=== PATIENT | female | born 1960 | race Caucasian/White ===

== ENCOUNTER → 2016-10-23 | Outpatient (CLI) | payer OTHER ==
--- NOTE | 2016-10-23 14:40 | XR ---
EXAMINATION TYPE: XR hand complete RT DATE OF EXAM: 10/23/2016 2:34 PM COMPARISON: NONE HISTORY: Pain TECHNIQUE: Three views are submitted. FINDINGS: Severe narrowing the first carpal metacarpal joint in a pattern compatible osteoarthritis. Osseous st ructures IMPRESSION: 1. No definite acute fracture or dislocation if symptoms persist, follow-up study in 7 to 10 days wo uld be suggested. 2. Severe osteoarthritis first carpal.
--- NOTE | 2016-10-23 14:41 | XR ---
EXAMINATION TYPE: XR wrist complete RT DATE OF EXAM: 10/23/2016 2:34 PM COMPARISON: NONE HISTORY: Pain TECHNIQUE: Four views submitted. FINDINGS: The osseous structures are intact. Severe arthropathy first carpal metacarpal joint and there is no a cute fracture or dislocation. IMPRESSION: 1. No definite acute fracture or dislocation if symptoms persist, follow-up study in 7 to 10 days wo uld be suggested. 2. Severe arthropathy first carpal metacarpal joint in a pattern compatible osteoarthritis
== END ==
LOC: RADXRMAIN 14:15
PROVIDERS: ATTEND Emergency Medicine
DX: M18.9 Osteoarthritis of first carpometacarpal joint, unspecified (principal); M25.531 Pain in right wrist

== ENCOUNTER → 2017-01-23 | Outpatient (CLI) | payer MEDICAID ==
[2017-01-23 08:10] LABS: Blood Urea Nitrogen 12 mg/dL (7-17); Non-African American GFR(MDRD) >60 (>60 ml/min/1.73 sqM)
--- NOTE | 2017-01-23 09:52 | CT ---
EXAMINATION TYPE: CT abdomen w con DATE OF EXAM: 01/23/2017 COMPARISON: NONE HISTORY: 56-year-old female unspecified abdominal pain TECHNIQUE: Contiguous axial scanning of the abdomen following administration of 100 ml Omnipaque 300 IV contrast. Delayed images through the kidneys and coronal/sagittal reconstructions performed. CT DLP: 899 mGycm Automated exposure control for dose reduction was used. FINDINGS: The heart is normal size without pericardial effusion. Lung bases are clear without pleural effusion. Small hiatal hernia. The liver is enlarged measuring 18.6 cm craniocaudal. There is a more focal fat along the anterior fa lciform ligament but there is diffuse diminished attenuation of the liver. Otherwise, no focal liver lesion. No biliary ductal dilatation. Portal venous system appears patent. Gallbladder, adrenal glands, spleen, and pancreas appear within normal limits. Subcentimeter hypodensities within both kidneys too small for accurate CT characterization, likely cy sts. The largest hypodense lesion is present in the left lower pole measuring 2.1 cm compatible with a cyst. Otherwise, there is symmetric uptake and excretion of contrast from both kidneys. Small fatty umbilical hernia. No dilated small bowel, free fluid, or free air. No mesenteric or retroperitoneal lymphadenopathy see n. There is mild overall stool burden without pericolonic inflammatory change seen within the visualized portions of the upper abdomen. There is suggestion of some lower descending colon diverticulosis. Bones: Degenerative disc disease and facet arthropathy within the lower lumbar spine. Chronic appeari ng endplate Schmorl's nodes and mild anterior wedging at T10 and T11. IMPRESSION: 1. BORDERLINE TO MILD HEPATOMEGALY WITH HEPATIC STEATOSIS. CORRELATE WITH LFT's, LIPID PROFILE, AND P ATIENT RISK FACTORS. 2. SMALL HIATAL HERNIA, SMALL FATTY UMBILICAL HERNIA, AND MILD DESCENDING COLONIC DIVERTICULOSIS. 3. NOTE THAT THE PELVIS IS NOT IMAGED ON THE CURRENT EXAM. 4. CHRONIC-APPEARING ENDPLATE SCHMORL'S NODES AND MILD ANTERIOR WEDGING AT T10 AND T11.
== END | disposition home or self-care (01) ==
LOC: RADCTMAIN 07:34
PROVIDERS: ATTEND Family Medicine
DX: K76.0 Fatty (change of) liver, not elsewhere classified (principal); R16.0 Hepatomegaly, not elsewhere classified; K44.9 Diaphragmatic hernia without obstruction or gangrene; K42.9 Umbilical hernia without obstruction or gangrene; K57.30 Diverticulosis of large intestine without perforation or abscess without bleeding; Z13.9 Encounter for screening, unspecified
CPT/HCPCS: 82565; 84520; 74160; Q9967

== ENCOUNTER 2017-08-08 19:49 | Observation (INO) | payer MEDICAID ==
[2017-08-08] MEDS ORDERED: SODIUM CHLORIDE 0.9% 1,000 ML IV STA (20:18)
[2017-08-08 20:38] LABS: Basophils % (A) 1 %; Eosinophils # (A) 0.3 k/uL (0-0.7); Eosinophils % (A) 6 %; HCT 40.8 % (34.0-46.0); HGB 12.9 gm/dL (11.4-16.0); Lymphocytes # (A) 2.1 k/uL (1.0-4.8); Lymphocytes % (A) 44 %; MCH 28.2 pg (25.0-35.0); MCHC 31.6 g/dL (31.0-37.0); MCV 89.2 fL (80.0-100.0); Mean Platelet Volume 7.2; Monocytes # (A) 0.3 k/uL (0-1.0); Monocytes % (A) 6 %; Neutrophils % (A) 41 %; Platelet Count 198 k/uL (150-450); RBC 4.58 m/uL (3.80-5.40); RDW 13.7 % (11.5-15.5); WBC 4.8 k/uL (3.8-10.6)
[2017-08-08 20:46] LABS: Creatine Kinase 57 U/L (30-135)
[2017-08-08 20:51] LABS: ALT 22 U/L (9-52); AST 19 U/L (14-36); Albumin 4.4 g/dL (3.5-5.0); Alkaline Phosphatase 61 U/L (38-126); Anion Gap 10 mmol/L; Blood Urea Nitrogen 19 mg/dL (7-17); Calcium 9.5 mg/dL (8.4-10.2); Carbon Dioxide 29 mmol/L (22-30); Chloride 105 mmol/L (98-107); Glucose 76 mg/dL (74-99); Potassium 3.9 mmol/L (3.5-5.1); Sodium 144 mmol/L (137-145); Total Bilirubin 0.3 mg/dL (0.2-1.3)
--- NOTE | 2017-08-08 20:51 | CT ---
EXAMINATION TYPE: CT brain wo con DATE OF EXAM: 08/08/2017 HISTORY: Right sided facial numbness today. CT DLP: 1037.10 mGycm. Automated Exposure Control for Dose Reduction was Utilized. TECHNIQUE: CT scan of the head is performed without contrast. COMPARISON: None. FINDINGS: There is no acute intracranial hemorrhage or midline shift identified. Ventricles and sul ci are normal in size. Bravo-white matter differentiation is maintained. The globes are intact and the visualized sinuses are clear. IMPRESSION: No acute intracranial hemorrhage or midline shift.
[2017-08-08 20:59] LABS: Creatine Kinase MB 0.7 ng/mL (0.0-2.4); Troponin I <0.012 ng/mL (0.000-0.034)
[2017-08-08 21:00] LABS: Partial Thromboplastin Time 22.3 sec (22.0-30.0); Prothrombin Time 10.1 sec (9.0-12.0)
--- NOTE | 2017-08-08 21:02 | XR ---
EXAMINATION TYPE: XR chest 2V DATE OF EXAM: 08/08/2017 COMPARISON: Prior chest x-ray and CTA chest March 30, 2016 HISTORY: Altered mental status. Right-sided numbness. TECHNIQUE: Frontal and lateral views of the chest are obtained. FINDINGS: There is no focal air space opacity, pleural effusion, or pneumothorax seen. The cardiac silhouette size is within normal limits. The osseous structures are intact. IMPRESSION: No acute cardiopulmonary process. No significant change from prior studies.
--- NOTE | 2017-08-08 21:19 | ED ---
Neuro HPI - General Chief Complaint: Neuro Symptoms/Deficit Stated Complaint: right side facial numbness Time Seen by Provider: 08/08/17 20:03 Source: patient Mode of arrival: ambulatory Limitations: no limitations - History of Present Illness Is the patient presenting with stroke symptoms?: No Initial Comments: 56 years old lady is transferred to [facility] from [facility] with the right side of the facial numbness starting 5 PM today, she also had episode of blurred vision 10 AM today which lasted for about 1 hour then it resolved. Now she has a mild headache no blurred vision facial numbness since there and she also has a localized infection on the top. He denies any chest pain or shortness of breath no weakness in the upper or lower extremity no other symptoms of any TIA or CVA (she took an aspirin 325 mg one in the morning and she repeated one later. - Related Data Home Medications: Home Medications Medication Instructions Recorded Confirmed Omeprazole [PriLOSEC] 20 mg PO DAILY 12/28/14 03/31/16 Previous Rx's Medication Instructions Recorded Chlorthalidone 25 mg PO DAILY #30 tab 03/31/16 Metoprolol Tartrate [Lopressor] 50 mg PO BID #60 tab 03/31/16 Allergies/Adverse Reactions: Allergies Allergy/AdvReac Type Severity Reaction Status Date / Time codeine Allergy Nausea & Verified 08/08/17 19:55 Vomiting tetanus toxoid, adsorbed Allergy Swelling Verified 08/08/17 19:55 morphine AdvReac Nausea & Verified 08/08/17 19:55 Vomiting ALL NARCOTICS AdvReac Nausea & Uncoded 08/08/17 19:55 Vomiting Review of Systems ROS Statement: Those systems with pertinent positive or pertinent negative responses have been documented in the HPI. ROS Other: All systems not noted in ROS Statement are negative. General Exam - General Exam Comments Initial Comments: General: The patient is awake and alert, in no distress, and does not appear acutely ill. Skin: Skin is warm and dry and no rashes or lesions are noted. Notice mild erythema on the right cheek and noticed a appetite oh and the middle of the upper lip Eye: Pupils are equal, round and reactive to light, extra-ocular movements are intact; there is normal conjunctiva bilaterally. Ears, nose, mouth and throat: There are moist mucous membranes and no oral lesions. Neck: The neck is supple, there is no tenderness or JVD. Cardiovascular: There is a regular rate and rhythm. No murmur, rub or gallop is appreciated. Respiratory: To auscultation bilateral, no wheezing no rhonchi no distress respiratory mahan noticed Gastrointestinal: Soft, non-distended, non-tender abdomen without masses or organomegaly noted. There is no rebound or guarding present. Bowel sounds are unremarkable. Back: There is no tenderness to palpation in the midline. There is no obvious deformity. Musculoskeletal: Normal ROM, no tenderness, There is no pedal edema. There is no calf tenderness or swelling. No cords were appreciated. Neurological: CN II-XII intact, Cranial nerves III through XII are intact. There are no obvious motor or sensory deficits. Coordination appears grossly intact. Speech is normal. Psychiatric: Cooperative, appropriate mood & affect, normal judgment. Limitations: no limitations Stroke MDM - Lab Data Result diagrams: 08/08/17 20:10 08/08/17 20:10 Lab Results 08/08/17 08/08/17 08/08/17 Range/Units 20:10 20:10 20:10 WBC 4.8 (3.8-10.6) k/uL RBC 4.58 (3.80-5.40) m/uL Hgb 12.9 (11.4-16.0) gm/dL Hct 40.8 (34.0-46.0) % MCV 89.2 (80.0-100.0) fL MCH 28.2 (25.0-35.0) pg MCHC 31.6 (31.0-37.0) g/dL RDW 13.7 (11.5-15.5) % Plt Count 198 (150-450) k/uL Neutrophils % 41 % Lymphocytes % 44 % Monocytes % 6 % Eosinophils % 6 % Basophils % 1 % Neutrophils # 2.0 (1.3-7.7) k/uL Lymphocytes # 2.1 (1.0-4.8) k/uL Monocytes # 0.3 (0-1.0) k/uL Eosinophils # 0.3 (0-0.7) k/uL Basophils # 0.0 (0-0.2) k/uL PT (9.0-12.0) sec INR (<1.2) APTT (22.0-30.0) sec Sodium 144 (137-145) mmol/L Potassium 3.9 (3.5-5.1) mmol/L Chloride 105 (98-107) mmol/L Carbon Dioxide 29 (22-30) mmol/L Anion Gap 10 mmol/L BUN 19 H (7-17) mg/dL Creatinine 0.60 (0.52-1.04) mg/dL Est GFR (MDRD) Af Amer >60 (>60 ml/min/1.73 sqM) Est GFR (MDRD) Non-Af >60 (>60 ml/min/1.73 sqM) Glucose 76 (74-99) mg/dL Calcium 9.5 (8.4-10.2) mg/dL Total Bilirubin 0.3 (0.2-1.3) mg/dL AST 19 (14-36) U/L ALT 22 (9-52) U/L Alkaline Phosphatase 61 (38-126) U/L Total Creatine Kinase 57 (30-135) U/L CK-MB (CK-2) 0.7 (0.0-2.4) ng/mL CK-MB (CK-2) Rel Index 1.2 Troponin I <0.012 (0.000-0.034) ng/mL Total Protein 7.0 (6.3-8.2) g/dL Albumin 4.4 (3.5-5.0) g/dL 08/08/17 Range/Units 20:10 WBC (3.8-10.6) k/uL RBC (3.80-5.40) m/uL Hgb (11.4-16.0) gm/dL Hct (34.0-46.0) % MCV (80.0-100.0) fL MCH (25.0-35.0) pg MCHC (31.0-37.0) g/dL RDW (11.5-15.5) % Plt Count (150-450) k/uL Neutrophils % % Lymphocytes % % Monocytes % % Eosinophils % % Basophils % % Neutrophils # (1.3-7.7) k/uL Lymphocytes # (1.0-4.8) k/uL Monocytes # (0-1.0) k/uL Eosinophils # (0-0.7) k/uL Basophils # (0-0.2) k/uL PT 10.1 (9.0-12.0) sec INR 1.0 (<1.2) APTT 22.3 (22.0-30.0) sec Sodium (137-145) mmol/L Potassium (3.5-5.1) mmol/L Chloride (98-107) mmol/L Carbon Dioxide (22-30) mmol/L Anion Gap mmol/L BUN (7-17) mg/dL Creatinine (0.52-1.04) mg/dL Est GFR (MDRD) Af Amer (>60 ml/min/1.73 sqM) Est GFR (MDRD) Non-Af (>60 ml/min/1.73 sqM) Glucose (74-99) mg/dL Calcium (8.4-10.2) mg/dL Total Bilirubin (0.2-1.3) mg/dL AST (14-36) U/L ALT (9-52) U/L Alkaline Phosphatase (38-126) U/L Total Creatine Kinase (30-135) U/L CK-MB (CK-2) (0.0-2.4) ng/mL CK-MB (CK-2) Rel Index Troponin I (0.000-0.034) ng/mL Total Protein (6.3-8.2) g/dL Albumin (3.5-5.0) g/dL Past Medical History Past Medical History: Atrial Fibrillation, Diabetes Mellitus, GERD/Reflux, Hypertension, Osteoarthritis (OA) Additional Past Medical History / Comment(s): migraines, History of Any Multi-Drug Resistant Organisms: MRSA Date of last positivie culture/infection: MDRO Source:: buttocks/ face Past Surgical History: Section Past Anesthesia/Blood Transfusion Reactions: No Reported Reaction Past Psychological History: No Psychological Hx Reported Smoking Status: Never smoker Past Alcohol Use History: Rare Past Drug Use History: None Reported Course Vital Signs 08/08/17 19:50 Temperature 97.4 F L Pulse Rate 69 Respiratory 18 Rate Blood Pressure 188/93 O2 Sat by Pulse 100 Oximetry EKG is a sinus bradycardia with sinus arrhythmia heart rate is 55 HI interval is 114 QRS duration is 80 QT/QTc is 408/390 and review of this EKG reveals T- wave inversion in lead [address] elevation or ST depression noticed - Reevaluation(s) Reevaluation #1: The patient is reassessed at down at 2100, head CT is normal CBC, CMP, troponin , EKG are unremarkable blood pressure is bit elevated she still has a numbness my recommended that we put her in the hospital for observation and have her see neurology tomorrow morning and will do MRI patient agreed with that I discussed that with the Dr. Roberto she agreed with the 08/08/17 21:19 Disposition Clinical Impression: Numbness and tingling of right side of face, Impetigo Disposition: ADMITTED IP TO THIS [facility] Condition: Good Referrals: Kaz Pavon DO [Primary Care Provider] - 1-2 days
[2017-08-08] MEDS ORDERED: ONDANSETRON 4 MG/2 ML VIAL IVP PRN (21:20)
[2017-08-08] MEDS ORDERED: NALOXONE 0.4 MG/ML 1 ML VIAL IV PRN ×2 (21:20→23:13)
[2017-08-08] MEDS ORDERED: ASPIRIN 81 MG PO STA (21:23)
[2017-08-08 22:17] VITALS: BMI 25.6
[2017-08-08] MEDS ORDERED: IBUPROFEN 400 MG TAB PO PRN (23:13)
[2017-08-08] MEDS ORDERED: CALCIUM CARBONATE 500 MG CHEWABLE PO PRN (23:13)
[2017-08-08] MEDS ORDERED: LORazepam 0.5 MG TAB PO PRN (23:13)
[2017-08-08] MEDS ORDERED: MELATONIN 3 MG TABLET PO PRN (23:13)
[2017-08-08] MEDS ORDERED: ACETAMINOPHEN TAB 325 MG TAB PO PRN (23:13)
[2017-08-08] MEDS ORDERED: traMADol 50 MG TAB PO PRN (23:13)
[2017-08-08] MEDS: LISINOPRIL 5 MG TAB PO SCH (23:35)
[2017-08-08] MEDS: ENOXAPARIN 40 MG/0.4 ML SYRINGE SQ SCH (23:41)
[2017-08-09 05:58] LABS: Glucose,Whole Blood 75 mg/dL (75-99)
[2017-08-09] MEDS: INSULIN ASPART 100 UNIT/ML 1 ML 10 ML VIAL SQ SCH ×2 (06:30→11:59)
[2017-08-09] MEDS ORDERED: PANTOPRAZOLE 40 MG TABLET PO SCH (07:30)
[2017-08-09] MEDS ORDERED: metFORMIN 500 MG TAB PO SCH (07:30)
[2017-08-09] MEDS ORDERED: CHLORTHALIDONE 25 MG TAB PO SCH (09:00)
[2017-08-09] MEDS ORDERED: METOPROLOL TARTRATE 50 MG TAB PO SCH (09:00)
[2017-08-09] MEDS ORDERED: LISINOPRIL 5 MG TAB PO SCH (09:00)
[2017-08-09] MEDS: LISINOPRIL 5 MG TAB PO SCH (10:36)
[2017-08-09] MEDS: ENOXAPARIN 40 MG/0.4 ML SYRINGE SQ SCH ×2 (10:36→10:48)
[2017-08-09 11:28] LABS: Glucose,Whole Blood 87 mg/dL (75-99)
[2017-08-09 11:55] VITALS: RESP 15; TEMP 97.3
[2017-08-09 11:58] VITALS: BP 131/70; PULSE 60
[2017-08-09 17:55] LABS: Hemoglobin A1C 5.6 % (4.0-6.0)
--- NOTE | 2017-08-17 00:30 | DS ---
DISCHARGE SUMMARY DATE OF ADMISSION: 08/08/2017 DATE LEFT AGAINST MEDICAL ADVICE: 08/09/2017 HOSPITAL COURSE: This patient was admitted at night and left in the morning against medical advice. The patient was not seen by me. For more history and physical in detail, refer to the ER note. This is a history, physical and discharge summary. MMODL / IJN: [id number] /
== END 2017-08-09 13:06 | disposition left against medical advice (07) ==
LOC: EC 19:49 → 6SEL 21:20
PROVIDERS: ADMIT Hospitalist; ATTEND Hospitalist
DX: R20.0 Anesthesia of skin (principal); R51 Headache; Z53.21 Procedure and treatment not carried out due to patient leaving prior to being seen by health care provider; K21.9 Gastro-esophageal reflux disease without esophagitis; Z79.899 Other long term (current) drug therapy; Z88.5 Allergy status to narcotic agent; Z88.7 Allergy status to serum and vaccine; Z86.14 Personal history of Methicillin resistant Staphylococcus aureus infection
CPT/HCPCS: 96360 ×2; 96361 ×2; 96372; 99285; 36415; 93005; 80053; 82550; 82553; 84484; 85025; 85610; 85730; 83036; 71046; 70450; G0378 ×2; J1650

== ENCOUNTER → 2018-03-29 | Outpatient (CLI) | payer BC ==
--- NOTE | 2018-03-29 14:57 | CT ---
EXAMINATION TYPE: CT sinus wo con DATE OF EXAM: 03/29/2018 COMPARISON: CT brain August 08, 2017 HISTORY: Chronic sinusitis per order. Headaches and double vision per patient. CT DLP: 593.1 mGycm. Automated Exposure Control for Dose Reduction was Utilized. TECHNIQUE: CT scan of the sinuses is performed without contrast, axial images are obtained, coronal r eformatted images are also reviewed. FINDINGS: The paranasal sinuses including the frontal, ethmoid, sphenoid, and maxillary sinuses bila terally are well-aerated without abnormal opacification. Tiny 3 mm mucous retention cyst or polyp inf erior medial left maxillary sinus coronal image 29 is noted The ostiomeatal complex is patent bilate rally on the coronal images. Nasal septum remains deviated to left of midline. Visualized portion of mastoid air cells show no abnormal opacification. The globes are intact bilate rally. IMPRESSION: No significant acute or chronic paranasal sinus disease and the ostiomeatal complex is pa tent bilaterally.
== END | disposition home or self-care (01) ==
LOC: RADCTMAIN 14:32
PROVIDERS: ATTEND Nurse Practitioner Family
DX: J32.9 Chronic sinusitis, unspecified (principal)
CPT/HCPCS: 70486

== ENCOUNTER 2021-05-08 08:06 | Day surgery (SDC) | payer BC ==
[2021-05-07 09:29] VITALS: BMI 32.8
--- NOTE | 2021-05-08 07:34 | P.GSHP ---
History of Present Illness H&P Date: 05/08/21 CHIEF COMPLAINT: GERD and colon screen HISTORY OF PRESENT ILLNESS: The patient is a 60-year-old female who presents with gastroesophageal reflux disease and need for colon screen. Upper and lower endoscopy were offered for further evaluation and management. PAST MEDICAL HISTORY: Please see list. PAST SURGICAL HISTORY: Please see list. MEDICATIONS: Please see list. ALLERGIES: Please see list. SOCIAL HISTORY: No illicit drug use FAMILY HISTORY: No reports of Crohn disease or ulcerative colitis. REVIEW OF ORGAN SYSTEMS: CONSTITUTIONAL: No reports of fevers or chills. GI: Denies any blood in stools or constipation. PHYSICAL EXAM: VITAL SIGNS: Stable GENERAL: Well-developed pleasant in no acute distress. HEENT: No scleral icterus. Extraocular movements grossly intact. Moist buccal mucosa. NECK: Supple without lymphadenopathy. CHEST: Unlabored respirations. Equal bilateral excursions. CARDIOVASCULAR: Regular rate and rhythm. Distal 2+ pulses. ABDOMEN: Soft, nondistended. MUSCULOSKELETAL: No clubbing, cyanosis, or edema. ASSESSMENT: 1. Gastroesophageal reflux disease 2. Colon screen. PLAN: 1. Recommend proceeding with an upper and lower endoscopy Past Medical History Past Medical History: Diabetes Mellitus, GERD/Reflux, Hyperlipidemia, Hypertension, Osteoarthritis (OA) Additional Past Medical History / Comment(s): migraines. hiatal hernia, diverticulosis History of Any Multi-Drug Resistant Organisms: MRSA Date of last positivie culture/infection: MDRO Source:: buttocks/ face Past Surgical History: Section, Heart Catheterization, Orthopedic Surgery Additional Past Surgical History / Comment(s): tendon repair lt foot Past Anesthesia/Blood Transfusion Reactions: No Reported Reaction Smoking Status: Former smoker Medications and Allergies Home Medications Medication Instructions Recorded Confirmed Type Omeprazole [PriLOSEC] 20 mg PO BID 12/28/14 05/07/21 History Aspirin 81 mg PO DAILY 08/08/17 05/07/21 History lisinopriL [Zestril] 20 mg PO DAILY 08/08/17 05/07/21 History metFORMIN HCL [Glucophage Xr] 500 mg PO BID 08/08/17 05/07/21 History Rosuvastatin [Crestor] 10 mg PO DAILY 05/07/21 05/07/21 History hydroCHLOROthiazide 25 mg PO DAILY 05/07/21 05/07/21 History Allergies Allergy/AdvReac Type Severity Reaction Status Date / Time codeine Allergy Nausea & Verified 05/07/21 09:22 Vomiting tetanus toxoid, adsorbed Allergy Swelling Verified 05/07/21 09:22 morphine AdvReac Nausea & Verified 05/07/21 09:22 Vomiting ALL NARCOTICS AdvReac Nausea & Uncoded 05/07/21 09:22 Vomiting
[~2021-05-08 08:06] MED LIST: LIDOCAINE 1% (10MG/ML) FOR IV START INTRADERMA PRN
[2021-05-08] MEDS: LACTATED RINGERS 1,000 ML IV SCH ×2 (08:45→09:16)
[2021-05-08] MEDS ORDERED: LIDOCAINE 1% (10MG/ML) FOR IV START INTRADERMA ONE (08:45)
[2021-05-08 08:47] VITALS: TEMP 98.1
[2021-05-08 08:48] LABS: Glucose,Whole Blood 121 mg/dL (75-99)
[2021-05-08] MEDS ORDERED: PROPOFOL 10 MG/ML 20 ML VIAL IV ONE (09:18)
[2021-05-08] MEDS ORDERED: LIDOCAINE 1% INJ 10MG/ML (20 ML MDV) ONE (09:18)
--- NOTE | 2021-05-08 09:29 | P.PCN ---
Date of Procedure: 05/08/21 Description of Procedure: PREOPERATIVE DIAGNOSIS: Gastroesophageal reflux disease. POSTOPERATIVE DIAGNOSIS: Gastritis. Gastroesophageal reflux disease. Diaphragmatic hiatal hernia OPERATION: Esophagogastroduodenoscopy with biopsies along antrum. SURGEON: Rosy Lopez MD ANESTHESIA: MAC. INDICATIONS: The patient is a 60-year-old female who presents with a history of reflux disease. Benefits and risks of the procedure were described. Informed consent was obtained. DESCRIPTION: The patient was brought into the endoscopy suite and laid in the left lateral decubitus position. An Olympus gastroscope was passed along the posterior oropharynx down to the distal esophagus where the squamocolumnar junction was encountered at 34 cm from the incisors. The stomach was entered and no bile reflux was found. Additional findings are listed below. Biopsies with cold forceps were obtained of the antrum. The first through third portion of the duodenum was examined and unremarkable. Retroflexion of the scope confirmed Hill grade 3 lower esophageal valve. The squamocolumnar junction demonstrated LA grade B erosive esophagitis. The stomach was desufflated. The patient tolerated the procedure well. FINDINGS: Squamocolumnar junction 34 cm from the incisors. Diaphragmatic hiatus at 37 cm. Hiatal hernia, 3 cm Hill grade 3 lower esophageal valve. LA grade B erosive esophagitis. No active duodenitis. Chronic gastritis RECOMMENDATIONS: Upper endoscopy as needed.
[2021-05-08 10:05] VITALS: BP 150/89; PULSE 74; RESP 16
--- NOTE | 2021-05-08 10:56 | P.PCN ---
Date of Procedure: 05/08/21 Description of Procedure: PREOPERATIVE DIAGNOSIS: Colonoscopy screening. POSTOPERATIVE DIAGNOSIS: Colonoscopy screening. Severe sigmoid diverticulosis with pandiverticulosis OPERATION: Colonoscopy to the cecum, ileocecal valve and appendiceal orifice. SURGEON: Rosy Lopez MD. ANESTHESIA: MAC. INDICATIONS: The patient is a 60-year-old female who presents for colonoscopy screening. Benefits and risks were described and informed consent was obtained. DESCRIPTION OF PROCEDURE: The patient had undergone Sutab prep. The patient had been brought into the operating room and laid in the left lateral decubitus position. After adequate intravenous sedation, the rectum was examined with 2% lidocaine jelly. External hemorrhoids were encountered. The rectal tone was within normal limits. No lesions were palpated in the rectal vault. An Olympus colonoscope was advanced until the cecum, ileocecal valve and appendiceal orifice were clearly viewed. The prep was good. Severe pandiverticulosis with scattered diverticulosis was encountered. No colonic polyps were found. No evidence of focal colitis was found. Retroflexion of the scope demonstrated grade 4 internal hemorrhoids without active bleeding or inflammation. The colon was desufflated. The patient had tolerated the procedure well. Withdrawal time was over 6 minutes. FINDINGS: Aronchick preparation quality scale 2 (1-5) Internal hemorrhoids, grade 4 External prolapsed hemorrhoids, grade 4 No arteriovenous malformations. No adenomatous polyps. No focal colitis. RECOMMENDATIONS: Lower endoscopy in 5 years, 2025 Plan - Discharge Summary Discharge Rx Participant: No New Discharge Prescriptions: Continue Omeprazole [PriLOSEC] 20 mg PO BID lisinopriL [Zestril] 20 mg PO DAILY metFORMIN HCL [Glucophage XR] 500 mg PO BID Aspirin 81 mg PO DAILY Rosuvastatin [Crestor] 10 mg PO DAILY hydroCHLOROthiazide 25 mg PO DAILY Discharge Medication List Omeprazole [PriLOSEC] 20 mg PO BID 12/28/14 [History] Aspirin 81 mg PO DAILY 08/08/17 [History] lisinopriL [Zestril] 20 mg PO DAILY 08/08/17 [History] metFORMIN HCL [Glucophage XR] 500 mg PO BID 08/08/17 [History] Rosuvastatin [Crestor] 10 mg PO DAILY 05/07/21 [History] hydroCHLOROthiazide 25 mg PO DAILY 05/07/21 [History] Follow up Appointment(s)/Referral(s): Rosy Lopez MD [STAFF PHYSICIAN] - 05/23/21 4:00 pm Patient Instructions/Handouts: Diverticulosis (DC), Diverticulosis Diet (GEN), Colonoscopy (DC) Activity/Diet/Wound Care/Special Instructions: Repeat colonoscopy in 5 years, 2025 Discharge Disposition: HOME SELF-CARE
== END 2021-05-08 11:00 | disposition home or self-care (01) ==
LOC: ORWHC2ENDO 08:06
PROVIDERS: ATTEND Surgery Plastic and Reconstructive Surgery
DX: K29.70 Gastritis, unspecified, without bleeding (principal); K21.9 Gastro-esophageal reflux disease without esophagitis; K44.9 Diaphragmatic hernia without obstruction or gangrene; K57.30 Diverticulosis of large intestine without perforation or abscess without bleeding; E11.9 Type 2 diabetes mellitus without complications; E78.5 Hyperlipidemia, unspecified; I10 Essential (primary) hypertension; M19.90 Unspecified osteoarthritis, unspecified site; K57.90 Diverticulosis of intestine, part unspecified, without perforation or abscess without bleeding; G43.909 Migraine, unspecified, not intractable, without status migrainosus; Z87.891 Personal history of nicotine dependence; Z79.84 Long term (current) use of oral hypoglycemic drugs; Z79.82 Long term (current) use of aspirin
CPT/HCPCS: 45378; 43239; J2001; J2704; 88305

== ENCOUNTER → 2021-05-17 | Outpatient (CLI) | payer BC ==
--- NOTE | 2021-05-17 09:50 | FL ---
EXAMINATION TYPE: FL barium swallow DATE OF EXAM: 05/17/2021 CLINICAL HISTORY: Diaphragmatic hernia per order. History of reflux with increasing pain and difficul ty swallowing for one month. History of chronic antireflux medication use. TECHNIQUE: A double contrast esophagram is performed utilizing air and barium. A total of 29 second s of fluoroscopic time was utilized during procedure and 84 images obtained COMPARISON: None FINDINGS: The esophagus shows normal motility and emptying into the stomach. No diverticulum. Small t o moderate-sized sliding-type hiatal hernia noted. No fixed hernia is present. No stricture. No signi ficant gastroesophageal reflux was seen during real time performance of this study. IMPRESSION: Small to moderate-sized sliding-type hiatal hernia.
== END | disposition home or self-care (01) ==
LOC: RADUSWWP 07:58
PROVIDERS: ATTEND Surgery Plastic and Reconstructive Surgery
DX: K44.9 Diaphragmatic hernia without obstruction or gangrene (principal); R94.31 Abnormal electrocardiogram [ECG] [EKG]
CPT/HCPCS: 74220; 93005

== ENCOUNTER → 2021-08-06 | Outpatient (CLI) | payer BC ==
[2021-08-07 13:27] LABS: Coronavirus SARS CoV-2 Not Detected (Not Detected)
== END | disposition home or self-care (01) ==
LOC: LABPAT 10:20
PROVIDERS: ATTEND Surgery Plastic and Reconstructive Surgery
DX: Z20.822 Contact with and (suspected) exposure to COVID-19 (principal)
CPT/HCPCS: U0003; C9803

== ENCOUNTER 2021-08-09 13:06 | Day surgery (SDC) | payer BC ==
[2021-08-07 15:06] VITALS: BMI 30.8
--- NOTE | 2021-08-09 12:02 | P.GSHP ---
History of Present Illness H&P Date: 08/09/21 CHIEF COMPLAINT: Paraesophageal hiatal hernia with gastroesophageal reflux disease. HISTORY OF PRESENT ILLNESS: The patient is a 60-year-old female who presents with paraesophageal hiatal hernia. She has completed upper endoscopy workup. Now she presents for surgical intervention. PAST MEDICAL HISTORY: Please see list. PAST SURGICAL HISTORY: Please see list. MEDICATIONS: Please see list. ALLERGIES: Please see list. SOCIAL HISTORY: No illicit drug use FAMILY HISTORY: No reports of Crohn disease or ulcerative colitis. REVIEW OF ORGAN SYSTEMS: CONSTITUTIONAL: No reports of fevers or chills. GI: Denies any blood in stools or constipation. PHYSICAL EXAM: VITAL SIGNS: Stable GENERAL: Well-developed pleasant and in no acute distress. HEENT: No scleral icterus. Extraocular movements grossly intact. Moist buccal mucosa. NECK: Supple without lymphadenopathy. CHEST: Unlabored respirations. Equal bilateral excursions. CARDIOVASCULAR: Regular rate and rhythm. Distal 2+ pulses. ABDOMEN: Soft, nondistended. No peritoneal signs. MUSCULOSKELETAL: No clubbing, cyanosis, or edema. SKIN: Well-perfused. Good skin turgor. ASSESSMENT: 1. Diaphragmatic paraesophageal hiatal hernia with severe gastroesophageal reflux disease. PLAN: 1. Recommend proceeding with a robotic paraesophageal hiatal hernia with possible mesh. 2. Benefits and risks of surgical intervention was discussed including possibility of open technique. 3. Inpatient hospitalization recommended of 2 nights 4. DVT prophylaxis. 5. Antibiotic prophylaxis. Past Medical History Past Medical History: Diabetes Mellitus, GERD/Reflux, Hyperlipidemia, Hyperten marci, Osteoarthritis (OA) Additional Past Medical History / Comment(s): Migraines, hiatal hernia, hx diverticulosis, hx anemia, varicose veins. History of Any Multi-Drug Resistant Organisms: MRSA Date of last positivie culture/infection: MDRO Source:: buttocks/ face Past Surgical History: Section, Heart Catheterization, Orthopedic Surgery Additional Past Surgical History / Comment(s): Tendon repair left foot. Past Anesthesia/Blood Transfusion Reactions: No Reported Reaction Past Psychological History: No Psychological Hx Reported Smoking Status: Former smoker Past Alcohol Use History: Rare Additional Past Alcohol Use History / Comment(s): Former smoker, quit in 1998. Past Drug Use History: None Reported - Past Family History Father Family Medical History: Cancer Medications and Allergies Home Medications Medication Instructions Recorded Confirmed Type Omeprazole [PriLOSEC] 20 mg PO BID 12/28/14 08/07/21 History Aspirin 81 mg PO QAM 08/08/17 08/07/21 History lisinopriL [Zestril] 20 mg PO QAM 08/08/17 08/07/21 History metFORMIN HCL [Glucophage XR] 500 mg PO BID 08/08/17 08/07/21 History Rosuvastatin [Crestor] 10 mg PO QAM 05/07/21 08/07/21 History Allergies Allergy/AdvReac Type Severity Reaction Status Date / Time codeine Allergy Nausea & Verified 08/07/21 14:55 Vomiting tetanus toxoid, adsorbed Allergy Swelling Verified 08/07/21 14:55 morphine AdvReac Nausea & Verified 08/07/21 14:55 Vomiting ALL NARCOTICS AdvReac Nausea & Uncoded 08/07/21 14:55 Vomiting
[~2021-08-09 13:06] MED LIST changes: +ACETAMINOPHEN TAB 500 MG TAB PO PRN; +CHLORHEXIDINE GLUCONATE 15 ML CUP MUCOUS MEM ONE; +DEXAMETHASONE SOD PHOSPHATE 4 MG/ML 1 ML VIAL IV ONE; +GABAPENTIN 300 MG CAP PO PRN; +HEPARIN SODIUM,PORCINE/PF 5,000 UNIT/0.5 ML SYRINGE SQ PRN; -LIDOCAINE 1% (10MG/ML) FOR IV START INTRADERMA PRN; +MELOXICAM 7.5 MG TAB PO PRN; +MIDAZOLAM 2 MG/2 ML VIAL IV PRN; +ONDANSETRON 4 MG/2 ML VIAL IVP ONE; +PANTOPRAZOLE 40 MG/10 ML VIAL IVP ONE; +SCOPOLAMINE 1.5MG/72HR PATCH TRANSDERM ONE; +SCOPOLAMINE 1.5MG/72HR PATCH TRANSDERM PRN; +fentaNYL (PF) 50 MCG/ML 2 ML AMP IV PRN
[2021-08-09 13:40] LABS: Basophils % (A) 1 %; Eosinophils # (A) 0.2 k/uL (0-0.7); Eosinophils % (A) 4 %; HCT 41.6 % (34.0-46.0); HGB 14.1 gm/dL (11.4-16.0); Lymphocytes # (A) 1.9 k/uL (1.0-4.8); Lymphocytes % (A) 44 %; MCH 29.4 pg (25.0-35.0); MCHC 33.9 g/dL (31.0-37.0); MCV 86.7 fL (80.0-100.0); Mean Platelet Volume 8.8; Monocytes # (A) 0.3 k/uL (0-1.0); Monocytes % (A) 7 %; Neutrophils # (A) 1.8 k/uL (1.3-7.7); Neutrophils % (A) 43 %; Platelet Count 219 k/uL (150-450); RDW 14.3 % (11.5-15.5); WBC 4.2 k/uL (3.8-10.6)
[2021-08-09] MEDS: LACTATED RINGERS 1,000 ML IV SCH (13:41)
[2021-08-09 13:42] LABS: Glucose,Whole Blood 100 mg/dL (75-99)
[2021-08-09 13:58] LABS: ALT 62 U/L (4-34); AST 38 U/L (14-36); African American GFR (CKD) >90 (>60 ml/min/1.73 sqM); Albumin 4.8 g/dL (3.5-5.0); Alkaline Phosphatase 87 U/L (38-126); Anion Gap 6 mmol/L; Blood Urea Nitrogen 16 mg/dL (7-17); Calcium 9.7 mg/dL (8.4-10.2); Carbon Dioxide 25 mmol/L (22-30); Chloride 107 mmol/L (98-107); Glucose 106 mg/dL (74-99); Non-African American GFR(CKD) >90 (>60 ml/min/1.73 sqM); Potassium 4.5 mmol/L (3.5-5.1); Sodium 138 mmol/L (137-145); Total Bilirubin 0.7 mg/dL (0.2-1.3); Total Protein 7.5 g/dL (6.3-8.2)
[2021-08-09] MEDS ORDERED: SUCCINYLCHOLINE CHLORIDE 100 MG/5 ML SYR IV ONE (16:30)
[2021-08-09] MEDS ORDERED: GLYCOPYRROLATE 0.2 MG/ML 2 ML VIAL ONE (16:30)
[2021-08-09] MEDS ORDERED: ROCURONIUM 10 MG/ML (5 ML VIAL) IV ONE (16:30)
[2021-08-09] MEDS ORDERED: PROPOFOL 10 MG/ML 20 ML VIAL IV ONE (16:30)
[2021-08-09] MEDS ORDERED: MIDAZOLAM 2 MG/2 ML VIAL ONE (16:30)
[2021-08-09] MEDS ORDERED: LIDOCAINE 1% INJ 10MG/ML (20 ML MDV) ONE (16:30)
[2021-08-09] MEDS ORDERED: ESMOLOL 100 MG/10 ML VIAL ONE (16:30)
[2021-08-09] MEDS ORDERED: NEOSTIGMINE 1 MG/ML 10 ML VIAL ONE (16:30)
[2021-08-09] MEDS ORDERED: fentaNYL (PF) 50 MCG/ML 2 ML AMP ONE (16:30)
[2021-08-09] MEDS ORDERED: PHENYLEPHRINE-0.9% NACL SYG 1,000 MCG/10 ML SYRINGE ONE (16:30)
[2021-08-09] MEDS ORDERED: BUPIVACAIN-EPI 0.25%-1:200,000 30 ML VIAL SQ ONE (16:49)
[2021-08-09] MEDS ORDERED: LACTATED RINGERS 1,000 ML IV ONE (17:44)
[2021-08-09] MEDS ORDERED: NALOXONE 0.4 MG/ML 1 ML VIAL IV PRN (18:09)
--- NOTE | 2021-08-09 18:16 | P.OP ---
Date of Procedure: 08/09/21 Description of Procedure: SURGEON: ROSY LOPEZ MD PREOPERATIVE DIAGNOSES: 1. Symptomatic paraesophageal diaphragmatic hiatal hernia. 2. Gastroesophageal reflux disease. 3. Hypertensive heart disease 4. Diabetes type 2, [id number] 5. Hyperlipidemia 6. Obesity due to excess calories, BMI 31.2 POSTOPERATIVE DIAGNOSES: 1. Paraesophageal midline diaphragmatic hernia, 4 cm, with incarceration. 2. Gastroesophageal reflux disease. 3. Hypertensive heart disease 4. Diabetes type 2, [id number] 5. Hyperlipidemia 6. Obesity due to excess calories, BMI 31.2 OPERATION: 1. Robotic-assisted da Renee Xi laparoscopic repair of incarcerated paraesophageal hiatal hernia, 4 x 3 cm, with Baldwin Biopatch A 8 x 8 cm. 2. Intraoperative esophagogastroduodenoscopy 3. Placement of 56-Jamaican bougie ANESTHESIA: General with local anesthetic. ESTIMATED BLOOD LOSS: 5 mL SPECIMENS REMOVED: None COMPLICATIONS: None. Condition: stable Disposition: floor FINDINGS: 1. Midline incarcerated paraesophageal hiatal hernia 4 x 3 cm 2. Intraoperative upper endoscopy confirms complete closure of hiatal hernia from Hill grade 3 to Hill grade 1 3. Intraesophageal length 3 cm INDICATIONS: The patient is a 60-year-old female who presents with gastroesophageal reflux disease poorly controlled despite medications, and a symptomatic diaphragmatic hiatal hernia. Preoperative workup including upper endoscopy demonstrated a sliding hiatal hernia. Given the severity of symptoms, the patient had elected for surgical intervention. Benefits and risks including bleeding, infection, recurrence, dysphagia, injury to the lung, need for further surgery was described at length. Informed consent was obtained. DESCRIPTION: The patient was brought into the operating room and placed in supine position. Preoperatively the patient had received heparin subcutaneously for DVT prophylaxis. After general induction, the abdomen was prepped and draped in standard sterile fashion. The patient had previously voided prior to coming to the operating room. Ioban draping was placed along the abdomen. A timeout protocol was confirmed with the surgical team, for which the patient's name, procedure to be performed including DVT prophylaxis with bilateral SCDs, and preoperative antibiotics were also confirmed. A robotic da Renee Xi system was prepped and primed. At 12 cm from the xiphoid to just below the umbilicus, proposed port sites were marked with indelible marker along the left axillary line, left mid-clavicular line with each ports were marked 10 cm from each other. A 5 mm 0 degrees laparoscopic trocar entry was performed along the left upper quadrant. The abdomen was insufflated to 15 mmHg pressure was tolerated well. Diagnostic laparoscopy demonstrated no injury to bowel, viscera, or mesentery. No injury had occurred to the small bowel or viscera. The liver was smooth consistent with two-week high-protein low-carb diet. Previous trochar sites from cholecystectomy were used. Next, one 8 mm robotic port was placed along the right upper abdomen. An 8-mm port was were placed along the right lateral lateral abdominal wall. The camera 8-mm port was maintained along the epigastrium. Another 12 mm port was placed along the left upper abdominal wall after exchanging the 5 mm port. Please note that the ports were placed at least 20 cm away from the target anatomy. Care was taken to check that each robotic arm were safely away from collision with the bed or the patient. At the epigastrium, a medium sized Aaliyah liver retractor was placed under direct visualization with the Iron Core Maker Helper placed under the right shoulder of the patient. All robotic arms were used. The patient was repositioned in reverse Trendelenburg position at 21-degrees after lowering the bed. The robot was docked above the right side of the patient. Using a grasper for arm 3, a grasper for arm 1, including vessel sealer for arm 2, the robotic system was docked and primed as described. Instruments were interchanged by the chef assistant. I had sat at the console. The gastrohepatic ligament was cleaved using a vessel sealer. Next, the phrenoesophageal ligament was mobilized and the distal esophagus was mobilized circumferentially. The left and right crura was identified. Circumferentially, the hernia sac was excised and brought into the peritoneal cavity. Moderate dissection into the mediastinum was performed to release the esophagus into the abdominal cavity. The paraesophageal hiatal hernia sac was also incised and divided from the esophagus. Care was taken to avoid any gastrotomy. The measured defect was consistent with 4 cm axial length and 3 cm in width. After dissection, the distal esophagus of 3 cm was brought into the abdominal cavity. Once the hiatus and crura was dissected, 2-0 VLOC nonabsorbable suture was placed to reapproximate the diaphragmatic hiatus posteriorly. To buttress the repair, a Baldwin Biopatch A was prepared along the back table and cut in half of a diaz-hole fashion as to reinforce the repair as an underlay. The mesh was placed along the crural repair and tagged using horizontal mattress sutures using 2-0 VLOC. I went to the head of the bed to perform intraoperative esophagogastroduodenoscopy and placement of a 56Fr bougie. The bougie was passed along the posterior oropharynx into the stomach for 2 minutes then removed confirming no gastroesophageal junction obstruction. An Olympus gastroscope was passed through posterior oropharynx. Retroflexion of the scope confirmed a Hill grade 1 lower esophageal valve. A gastric cardia diverticulum was identified. The stomach had been desufflated. No evidence of leaks were found of the esophagus or stomach. The GI tract with desufflated This concluded the endoscopic portion of the case. The robot was undocked from the patient. I re-scrubbed into the case. All instruments and pneumoperitoneum and specimens were evacuated from the abdominal cavity. Incisions were reapproximated using 4-0 Monocryl in an interrupted subcuticular fashion. Liquid glue was applied to the skin. Local anesthetic was infiltrated in all wounds for postop analgesia. At the end of the procedure, needle, sponge, and instrument count was verified correct by the rn medical surgical. The patient had tolerated the procedure well and was taken to the postanesthesia unit in stable condition. Plan - Discharge Summary Discharge Rx Participant: Yes New Discharge Prescriptions: New Simethicone 40 mg/0.6 ml Drops [Mylicon Drops] 40 mg PO PCHS PRN #30 ml PRN Reason: Gas Ondansetron Odt [Zofran Odt] 4 mg PO Q8HR PRN #9 tab PRN Reason: Nausea Simethicone 40 mg/0.6 ml Drops [Mylicon Drops] 40 mg PO PCHS PRN #30 ml PRN Reason: Gas Omeprazole [PriLOSEC] 40 mg PO DAILY #30 cap bisacodyL [Dulcolax] 5 mg PO DAILY PRN #10 tab PRN Reason: Constipation Acetaminophen Tab [Tylenol Tab] 1,000 mg PO Q6HR PRN #30 tablet PRN Reason: Pain bisacodyL [Dulcolax] 5 mg PO DAILY PRN #10 tab PRN Reason: Constipation Ondansetron Odt [Zofran Odt] 4 mg PO Q8HR PRN #9 tab PRN Reason: Nausea Continue lisinopriL [Zestril] 20 mg PO QAM metFORMIN HCL [Glucophage XR] 500 mg PO BID Aspirin 81 mg PO QAM Rosuvastatin [Crestor] 10 mg PO QAM Discontinued Omeprazole [PriLOSEC] 20 mg PO BID Discharge Medication List Aspirin 81 mg PO QAM 08/08/17 [History] lisinopriL [Zestril] 20 mg PO QAM 08/08/17 [History] metFORMIN HCL [Glucophage XR] 500 mg PO BID 08/08/17 [History] Rosuvastatin [Crestor] 10 mg PO QAM 05/07/21 [History] Acetaminophen Tab [Tylenol Tab] 1,000 mg PO Q6HR PRN #30 tablet 08/09/21 [Rx] Omeprazole [PriLOSEC] 40 mg PO DAILY #30 cap 08/09/21 [Rx] Ondansetron Odt [Zofran Odt] 4 mg PO Q8HR PRN #9 tab 08/09/21 [Rx] Ondansetron Odt [Zofran Odt] 4 mg PO Q8HR PRN #9 tab 08/09/21 [Rx] Simethicone 40 mg/0.6 ml Drops [Mylicon Drops] 40 mg PO PCHS PRN #30 ml 08/09/21 [Rx] Simethicone 40 mg/0.6 ml Drops [Mylicon Drops] 40 mg PO PCHS PRN #30 ml 08/09/21 [Rx] bisacodyL [Dulcolax] 5 mg PO DAILY PRN #10 tab 08/09/21 [Rx] bisacodyL [Dulcolax] 5 mg PO DAILY PRN #10 tab 08/09/21 [Rx] Follow up Appointment(s)/Referral(s): Rosy Lopez MD [STAFF PHYSICIAN] - 08/13/21 (Telehealth advised) Patient Instructions/Handouts: *[facility] - Managing Your Pain After Surgery Without Opioids, Hiatal Hernia (DC), Laparoscopic Hiatal Hernia Repair (DC) Activity/Diet/Wound Care/Special Instructions: Liquid diet only for 2 weeks until August 23 No lifting over 4 pounds in 4 weeks, March 25 May shower No soaking in bath tubs for 2 weeks, August 23 Please notify your surgeon if you develop nausea and vomiting including new onset of abdominal pain. Please ambulate at all times. Use Simethicone, Gas-X, Tylenol and ibuprofen or Aleve scheduled for the next 24-48 hours for best pain relief. Use ice along incisions for the today to prevent swelling. Please open, cut, crush pills larger than the size of a tic tack No carbonated beverages. No straws. Do not remove scopolamine patch for 3 days, if present Avoiding Gas Avoid drinking through a straw. Do not chew gum or tobacco. These actions cause you to swallow air, which produces excess gas in your stomach. Chew with your mouth closed. Avoid any foods that cause stomach gas and distention. These foods include corn, dried beans, peas, lentils, onions, broccoli, cauliflower and any food from the cabbage family. Avoid carbonated drinks, alcohol, citrus and tomato products. Carbonated drinks (sodas) are not allowed for the first six to eight weeks after surgery. After this time you can try them again in small amounts Clear Liquid Diet The first diet after surgery is the clear liquid diet. It includes the following liquids: Apple juice Cranberry juice Grape juice Chicken broth Beef broth Flavored gelatin (Jell-O) Decaf tea and coffee Caffeinated beverages are permitted based on tolerance Popsicles [place] ice Full Liquid Diet The full liquid diet contains anything on the clear liquid diet, plus: Milk, soy, rice and almond (no chocolate) Cream of wheat, cream of rice, grits Strained creamed soups (no tomato or broccoli) Vanilla and strawberry-flavored ice cream Sherbet Blended, custard styled or whipped yogurt (plain or vanilla only) Vanilla and butterscotch pudding (no chocolate or coconut) Nutritional drinks including Ensure, Boost, [place] Instant Breakfast (no chocolate-flavored) Note: Dairy products, such as milk, ice cream and pudding, may cause diarrhea in some people just after surgery. You may need to avoid milk products. If so, substitute them with lactose-free beverages, such as soy, rice, Lactaid or almond milks. Discharge Disposition: HOME SELF-CARE
[2021-08-09 18:37] LABS: Glucose,Whole Blood 164 mg/dL (75-99)
[2021-08-09] MEDS ORDERED: KETOROLAC 15 MG/ML 1 ML VIAL IVP ONE (19:04)
[2021-08-09] MEDS ORDERED: diphenhydrAMINE 50 MG/ML 1 ML VIAL IVP ONE (19:07)
[2021-08-09] MEDS: ONDANSETRON 4 MG/2 ML VIAL IVP SCH (19:53)
[2021-08-09] MEDS ORDERED: DEXAMETHASONE SOD PHOSPHATE 10 MG/ML 1 ML VIAL IVP ONE (20:00)
[2021-08-09] MEDS: 0.9% NACL WITH KCL 20 MEQ/L 1,000 ML IV SCH (22:06)
[2021-08-10] MEDS: KETOROLAC 30 MG/ML 1 ML VIAL IVP SCH ×2 (00:01→05:23)
[2021-08-10] MEDS: ONDANSETRON 4 MG/2 ML VIAL IVP SCH ×2 (00:01→05:23)
[2021-08-10] MEDS: ACETAMINOPHEN IV (For NPO) 1,000 MG in EMPTY BAG 1 BAG IVPB SCH ×2 (00:02→05:24)
[2021-08-10] MEDS: DEXAMETHASONE SOD PHOSPHATE 4 MG/ML 1 ML VIAL IVP SCH ×2 (00:02→05:23)
[2021-08-10] MEDS: METOCLOPRAMIDE 5 MG/ML 2 ML VIAL IVP SCH ×2 (00:02→05:22)
[2021-08-10] MEDS: SIMETHICONE 40 MG/0.6 ML DROPS 2,000 MG/30 ML BOTTLE PO SCH ×2 (00:03→05:25)
[2021-08-10 00:04] LABS: Glucose,Whole Blood 143 mg/dL (75-99)
[2021-08-10] MEDS: HYOSCYAMINE ORAL DROPS 1.875 MG/15 ML BOTTLE PO SCH ×2 (00:04→05:26)
[2021-08-10] MEDS: INSULIN ASPART (NovoLOG) 100 UNIT/ML VIAL SQ SCH ×2 (01:11→05:39)
[2021-08-10 05:37] LABS: Glucose,Whole Blood 149 mg/dL (75-99)
[2021-08-10] MEDS: 0.9% NACL WITH KCL 20 MEQ/L 1,000 ML IV SCH (06:20)
[2021-08-10] MEDS ORDERED: 0.9% NACL WITH KCL 20 MEQ/L 1,000 ML IV SCH (08:00)
[2021-08-10 08:32] VITALS: BP 116/72; PULSE 70; RESP 16; TEMP 98.2
[2021-08-10 08:57] LABS: Basophils # (A) 0 X 10*3/uL (0.00-0.10); Basophils % (A) 0 %; Eosinophils # (A) 0 X 10*3/uL (0.04-0.35); Eosinophils % (A) 0 %; HCT 39.4 % (37.2-46.3); HGB 12.4 g/dL (12.0-15.0); Immature Grans, Automated 0.2 %; Lymphocytes # (A) 0.58 X 10*3/uL (0.90-5.00); Lymphocytes % (A) 11.7 %; MCH 27.3 pg (27.0-32.0); MCHC 31.5 g/dL (32.0-37.0); MCV 86.6 fL (80.0-97.0); Mean Platelet Volume 12.3 fL (9.5-12.2); Monocytes # (A) 0.06 X 10*3/uL (0.20-1.00); Monocytes % (A) 1.2 %; NRBC Per 100 WBC 0 /100 WBCS (0.0-0.0); Neutrophils # (A) 4.31 X 10*3/uL (1.80-7.70); Neutrophils % (A) 86.9 %; Platelet Count 195 X 10*3/uL (140-440); RBC 4.55 X 10*6/uL (4.10-5.20); RDW 14.3 % (11.5-14.5); WBC 4.96 X 10*3/uL (4.50-10.00)
[2021-08-10 08:59] LABS: African American GFR (CKD) 94.2 (60.0-200.0); Anion Gap 11.1 mmol/L (10.00-18.00); Blood Urea Nitrogen 23.3 mg/dL (9.0-27.0); Calcium 8.7 mg/dL (8.7-10.3); Carbon Dioxide 20.9 mmol/L (20.0-27.5); Non-African American GFR(CKD) 81.3 (60.0-200.0); Phosphorus 4.5 mg/dL (2.4-5.1); Potassium 4.8 mmol/L (3.5-5.5)
[2021-08-10] MEDS ORDERED: ENOXAPARIN 30 MG/0.3 ML SYRINGE SQ SCH (09:00)
[2021-08-10] MEDS ORDERED: lisinopriL 20 MG TAB PO SCH (09:00)
[2021-08-10] MEDS: LACTATED RINGERS 1,000 ML IV SCH (09:17)
--- NOTE | 2021-08-10 09:37 | FL ---
EXAMINATION TYPE: FL esophagus cervic/pharynx DATE OF EXAM: 08/10/2021 HISTORY: Status post Jacques fundoplication COMPARISON: NONE TECHNIQUE: Limited esophagram directed to the tension of the gastroesophageal junction was performed. Patient was given 40 cc Isovue-370 to drink. 18 seconds fluoroscopy time, 3 intraoperative images do cument the procedure. FINDINGS: Minimal pneumoperitoneum is present consistent with postop state. Contrast material courses across th e gastroesophageal junction. There is no evident leak or obstruction to flow. Subsegmental basilar at electatic changes are noted incidentally. IMPRESSION: No evident complication status post Jacques fundoplication
[2021-08-10 10:34] LABS: Magnesium 2.2 mg/dL (1.5-2.4)
--- NOTE | 2021-08-10 11:05 | P.DS ---
Providers Expected date of discharge: 08/10/21 Attending physician: Rosy Lopez Consults: 08/09/21 11:51 Consult Physician Routine Consulting Provider: [facility] Consult Reason/Comments: [facility] Do you want consulting provider notified?: Yes Primary care physician: Stated None Hospital Course: Patient minute yesterday after laparoscopic repair hiatal hernia. Doing well today. Denies pain. Tolerating liquids. Upper GI shows no evidence of leak or obstruction. May discharge. Continue liquids after discharge. Follow-up with Dr. Mann on Thursday. Plan - Discharge Summary Discharge Rx Participant: Yes New Discharge Prescriptions: New Simethicone 40 mg/0.6 ml Drops [Mylicon Drops] 40 mg PO PCHS PRN #30 ml PRN Reason: Gas Ondansetron Odt [Zofran Odt] 4 mg PO Q8HR PRN #9 tab PRN Reason: Nausea Simethicone 40 mg/0.6 ml Drops [Mylicon Drops] 40 mg PO PCHS PRN #30 ml PRN Reason: Gas Omeprazole [PriLOSEC] 40 mg PO DAILY #30 cap bisacodyL [Dulcolax] 5 mg PO DAILY PRN #10 tab PRN Reason: Constipation Acetaminophen Tab [Tylenol Tab] 1,000 mg PO Q6HR PRN #30 tablet PRN Reason: Pain bisacodyL [Dulcolax] 5 mg PO DAILY PRN #10 tab PRN Reason: Constipation Ondansetron Odt [Zofran Odt] 4 mg PO Q8HR PRN #9 tab PRN Reason: Nausea Continue lisinopriL [Zestril] 20 mg PO QAM metFORMIN HCL [Glucophage XR] 500 mg PO BID Aspirin 81 mg PO QAM Rosuvastatin [Crestor] 10 mg PO QAM Discontinued Omeprazole [PriLOSEC] 20 mg PO BID Discharge Medication List Aspirin 81 mg PO QAM 08/08/17 [History] lisinopriL [Zestril] 20 mg PO QAM 08/08/17 [History] metFORMIN HCL [Glucophage XR] 500 mg PO BID 08/08/17 [History] Rosuvastatin [Crestor] 10 mg PO QAM 05/07/21 [History] Acetaminophen Tab [Tylenol Tab] 1,000 mg PO Q6HR PRN #30 tablet 08/09/21 [Rx] Omeprazole [PriLOSEC] 40 mg PO DAILY #30 cap 08/09/21 [Rx] Ondansetron Odt [Zofran Odt] 4 mg PO Q8HR PRN #9 tab 08/09/21 [Rx] Ondansetron Odt [Zofran Odt] 4 mg PO Q8HR PRN #9 tab 08/09/21 [Rx] Simethicone 40 mg/0.6 ml Drops [Mylicon Drops] 40 mg PO PCHS PRN #30 ml 08/09/21 [Rx] Simethicone 40 mg/0.6 ml Drops [Mylicon Drops] 40 mg PO PCHS PRN #30 ml 08/09/21 [Rx] bisacodyL [Dulcolax] 5 mg PO DAILY PRN #10 tab 08/09/21 [Rx] bisacodyL [Dulcolax] 5 mg PO DAILY PRN #10 tab 08/09/21 [Rx] Follow up Appointment(s)/Referral(s): Rosy Lopez MD [STAFF PHYSICIAN] - 08/13/21 (Telehealth advised) Patient Instructions/Handouts: *[facility] - Managing Your Pain After Surgery Without Opioids, Hiatal Hernia (DC), Laparoscopic Hiatal Hernia Repair (DC) Activity/Diet/Wound Care/Special Instructions: Liquid diet only for 2 weeks until August 23 No lifting over 4 pounds in 4 weeks, September 06October shower No soaking in bath tubs for 2 weeks, August 23 Please notify your surgeon if you develop nausea and vomiting including new onset of abdominal pain. Please ambulate at all times. Use Simethicone, Gas-X, Tylenol and ibuprofen or Aleve scheduled for the next 24-48 hours for best pain relief. Use ice along incisions for the today to prevent swelling. Please open, cut, crush pills larger than the size of a tic tack No carbonated beverages. No straws. Do not remove scopolamine patch for 3 days, if present Avoiding Gas Avoid drinking through a straw. Do not chew gum or tobacco. These actions cause you to swallow air, which produces excess gas in your stomach. Chew with your mouth closed. Avoid any foods that cause stomach gas and distention. These foods include corn, dried beans, peas, lentils, onions, broccoli, cauliflower and any food from the cabbage family. Avoid carbonated drinks, alcohol, citrus and tomato products. Carbonated drinks (sodas) are not allowed for the first six to eight weeks after surgery. After this time you can try them again in small amounts Clear Liquid Diet The first diet after surgery is the clear liquid diet. It includes the following liquids: Apple juice Cranberry juice Grape juice Chicken broth Beef broth Flavored gelatin (Jell-O) Decaf tea and coffee Caffeinated beverages are permitted based on tolerance [facility] Czech ice Full Liquid Diet The full liquid diet contains anything on the clear liquid diet, plus: Milk, soy, rice and almond (no chocolate) Cream of wheat, cream of rice, grits Strained creamed soups (no tomato or broccoli) Vanilla and strawberry-flavored ice cream Sherbet Blended, custard styled or whipped yogurt (plain or vanilla only) Vanilla and butterscotch pudding (no chocolate or coconut) Nutritional drinks including Ensure, Boost, [place] Instant Breakfast (no chocolate-flavored) Note: Dairy products, such as milk, ice cream and pudding, may cause diarrhea in some people just after surgery. You may need to avoid milk products. If so, substitute them with lactose-free beverages, such as soy, rice, Lactaid or almond milks. Discharge Disposition: HOME SELF-CARE
== END 2021-08-10 11:56 | disposition home or self-care (01) ==
LOC: OR 13:06 → 4SSUR 18:39 → OR 08-10 11:56
PROVIDERS: ATTEND Surgery Plastic and Reconstructive Surgery
DX: K44.0 Diaphragmatic hernia with obstruction, without gangrene (principal); K21.9 Gastro-esophageal reflux disease without esophagitis; I11.9 Hypertensive heart disease without heart failure; E11.9 Type 2 diabetes mellitus without complications; E78.5 Hyperlipidemia, unspecified; E66.09 Other obesity due to excess calories; M19.90 Unspecified osteoarthritis, unspecified site; G43.909 Migraine, unspecified, not intractable, without status migrainosus; K57.90 Diverticulosis of intestine, part unspecified, without perforation or abscess without bleeding; I83.90 Asymptomatic varicose veins of unspecified lower extremity; Z68.31 Body mass index [BMI] 31.0-31.9, adult; Z86.14 Personal history of Methicillin resistant Staphylococcus aureus infection; Z98.891 History of uterine scar from previous surgery; Z98.890 Other specified postprocedural states; Z87.891 Personal history of nicotine dependence; Z79.899 Other long term (current) drug therapy; Z79.82 Long term (current) use of aspirin; Z79.84 Long term (current) use of oral hypoglycemic drugs; Z88.5 Allergy status to narcotic agent; Z88.7 Allergy status to serum and vaccine; Z90.49 Acquired absence of other specified parts of digestive tract; Z80.9 Family history of malignant neoplasm, unspecified
CPT/HCPCS: 43282; S2900; 74210; 80051; 80053; 82310; 82565; 83735; 84100; 84520; 85025

== ENCOUNTER 2021-08-15 11:00 | Observation (INO) | payer BC ==
[2021-08-15 11:08] VITALS: TEMP 97.7
[2021-08-15] MEDS ORDERED: NITROGLYCERIN OINT 1 INCH/GM PACKET TOPICAL STA (11:27)
--- NOTE | 2021-08-15 11:29 | ED ---
General Adult HPI - General Chief complaint: Shortness of Breath Stated complaint: SOB Time Seen by Provider: 08/15/21 11:05 Source: patient, RN notes reviewed, old records reviewed Mode of arrival: ambulatory Limitations: no limitations - History of Present Illness Initial comments: This a 60-year-old female has past medical history significant for high blood pressure high cholesterol and diabetes. Patient states on Thursday she had a fundoplication secondary to her esophageal reflux. Patient states this morning about 9:00 she started having some chest heaviness and then shortly thereafter she started having difficulty breathing. Patient states the pain is constant and it has not relieved. Patient states her abdomen is a little sore where the incisions are but there is no new abdominal pain. Patient denies any fever chills or cough. Patient states the pain in her chest radiates to her back. Patient denies any leg swelling or calf tenderness. Patient denies abdominal pain. Other than at the incisions. Patient denies any vomiting or diarrhea. - Related Data Home Medications Medication Instructions Recorded Confirmed Aspirin 81 mg PO QAM 08/08/17 08/15/21 lisinopriL [Zestril] 20 mg PO QAM 08/08/17 08/15/21 metFORMIN HCL [Glucophage XR] 500 mg PO QAM 08/08/17 08/15/21 Rosuvastatin [Crestor] 10 mg PO QAM 05/07/21 08/15/21 metroNIDAZOLE [metroNIDAZOLE 0.75% 1 applic TOPICAL BID 08/15/21 08/15/21 Gel] Previous Rx's Medication Instructions Recorded Acetaminophen Tab [Tylenol Tab] 1,000 mg PO Q6HR PRN #30 tablet 08/09/21 Omeprazole [PriLOSEC] 40 mg PO DAILY #30 cap 08/09/21 Ondansetron Odt [Zofran Odt] 4 mg PO Q8HR PRN #9 tab 08/09/21 Simethicone 40 mg/0.6 ml Drops 40 mg PO PCHS PRN #30 ml 08/09/21 [Mylicon Drops] bisacodyL [Dulcolax] 5 mg PO DAILY PRN #10 tab MDD 3 08/09/21 tabs Allergies Allergy/AdvReac Type Severity Reaction Status Date / Time tetanus toxoid, adsorbed Allergy Swelling Verified 08/15/21 12:12 codeine AdvReac Nausea & Verified 08/15/21 12:12 Vomiting morphine AdvReac Nausea & Verified 08/15/21 12:12 Vomiting ALL NARCOTICS AdvReac Nausea & Uncoded 08/09/21 13:21 Vomiting Review of Systems ROS Statement: Those systems with pertinent positive or pertinent negative responses have been documented in the HPI. ROS Other: All systems not noted in ROS Statement are negative. Past Medical History Past Medical History: No Reported History Additional Past Medical History / Comment(s): migraines. hiatal hernia, diverticulosis History of Any Multi-Drug Resistant Organisms: MRSA Date of last positivie culture/infection: MDRO Source:: buttocks/ face Past Surgical History: Section, Heart Catheterization, Orthopedic Surgery Additional Past Surgical History / Comment(s): tendon repair lt foot, hiatal hernia repair Past Anesthesia/Blood Transfusion Reactions: No Reported Reaction Past Psychological History: No Psychological Hx Reported Smoking Status: Former smoker Past Alcohol Use History: Rare Past Drug Use History: None Reported General Exam - General Exam Comments Initial Comments: GENERAL: Patient is well-developed and well-nourished. Patient is nontoxic and well- hydrated and is in mild distress. ENT: Neck is soft and supple. No significant lymphadenopathy is noted. Oropharynx is clear. Moist mucous membranes. Neck has full range of motion without elici ting any pain. EYES: The sclera were anicteric and conjunctiva were pink and moist. Extraocular m ovements were intact and pupils were equal round and reactive to light. Eyelids were unremarkable. PULMONARY: Unlabored respirations. Good breath sounds bilaterally. No audible rales rhonchi or wheezing was noted. CARDIOVASCULAR: There is a regular rate and rhythm without any murmurs gallops or rubs. ABDOMEN: Soft and nontender with normal bowel sounds. SKIN: Skin is clear with no lesions or rashes and otherwise unremarkable. NEUROLOGIC: Patient is alert and oriented x3. Cranial nerves II through XII are grossly intact. Motor and sensory are also intact. Normal speech, volume and content. Symmetrical smile. MUSCULOSKELETAL: Normal extremities with adequate strength and full range of motion. No calf tenderness or leg swelling no leg edema LYMPHATICS: No significant lymphadenopathy is noted PSYCHIATRIC: Normal psychiatric evaluation. Limitations: no limitations Course Vital Signs 08/15/21 08/15/21 11:05 11:45 Temperature 97.7 F Pulse Rate 68 65 Respiratory 18 16 Rate Blood Pressure 150/96 117/65 O2 Sat by Pulse 99 96 Oximetry Medical Decision Making - Medical Decision Making EKG shows sinus rhythm at 71 bpm [place] interval 119 QRSs 84 QT interval 370 QTC is 42. Patient's EKG shows no ST segment elevation or depression. Chest x-ray shows no acute abnormality. CT of the chest shows no PE. I will back into the room reevaluated the patient she was feeling better. I spoke with some physicians agreed to admit the patient admitted the patient wrote admitting orders. - Lab Data Result diagrams: 08/15/21 11:45 08/15/21 11:45 Lab Results 08/15/21 08/15/21 08/15/21 Range/Units 11:45 11:45 11:45 WBC 5.1 (3.8-10.6) k/uL RBC 4.74 (3.80-5.40) m/uL Hgb 13.6 (11.4-16.0) gm/dL Hct 40.4 (34.0-46.0) % MCV 85.2 (80.0-100.0) fL MCH 28.8 (25.0-35.0) pg MCHC 33.7 (31.0-37.0) g/dL RDW 14.8 (11.5-15.5) % Plt Count 191 (150-450) k/uL MPV 8.5 Neutrophils % 61 % Lymphocytes % 28 % Monocytes % 5 % Eosinophils % 3 % Basophils % 1 % Neutrophils # 3.1 (1.3-7.7) k/uL Lymphocytes # 1.4 (1.0-4.8) k/uL Monocytes # 0.3 (0-1.0) k/uL Eosinophils # 0.1 (0-0.7) k/uL Basophils # 0.0 (0-0.2) k/uL PT 10.8 (9.0-12.0) sec INR 1.0 (<1.2) APTT 22.3 (22.0-30.0) sec D-Dimer 1.00 H (<0.60) mg/L FEU Sodium 136 L (137-145) mmol/L Potassium 4.4 (3.5-5.1) mmol/L Chloride 107 (98-107) mmol/L Carbon Dioxide 19 L (22-30) mmol/L Anion Gap 10 mmol/L BUN 17 (7-17) mg/dL Creatinine 0.57 (0.52-1.04) mg/dL Est GFR (CKD-EPI)AfAm >90 (>60 ml/min/1.73 sqM) Est GFR (CKD-EPI)NonAf >90 (>60 ml/min/1.73 sqM) Glucose 103 H (74-99) mg/dL Plasma Lactic Acid Dajuan (0.7-2.0) mmol/L Calcium 9.1 (8.4-10.2) mg/dL Magnesium 2.0 (1.6-2.3) mg/dL Total Bilirubin 0.6 (0.2-1.3) mg/dL AST 40 H (14-36) U/L ALT 55 H (4-34) U/L Alkaline Phosphatase 66 (38-126) U/L Troponin I (0.000-0.034) ng/mL Total Protein 6.6 (6.3-8.2) g/dL Albumin 4.0 (3.5-5.0) g/dL 08/15/21 08/15/21 Range/Units 11:45 11:45 WBC (3.8-10.6) k/uL RBC (3.80-5.40) m/uL Hgb (11.4-16.0) gm/dL Hct (34.0-46.0) % MCV (80.0-100.0) fL MCH (25.0-35.0) pg MCHC (31.0-37.0) g/dL RDW (11.5-15.5) % Plt Count (150-450) k/uL MPV Neutrophils % % Lymphocytes % % Monocytes % % Eosinophils % % Basophils % % Neutrophils # (1.3-7.7) k/uL Lymphocytes # (1.0-4.8) k/uL Monocytes # (0-1.0) k/uL Eosinophils # (0-0.7) k/uL Basophils # (0-0.2) k/uL PT (9.0-12.0) sec INR (<1.2) APTT (22.0-30.0) sec D-Dimer (<0.60) mg/L FEU Sodium (137-145) mmol/L Potassium (3.5-5.1) mmol/L Chloride (98-107) mmol/L Carbon Dioxide (22-30) mmol/L Anion Gap mmol/L BUN (7-17) mg/dL Creatinine (0.52-1.04) mg/dL Est GFR (CKD-EPI)AfAm (>60 ml/min/1.73 sqM) Est GFR (CKD-EPI)NonAf (>60 ml/min/1.73 sqM) Glucose (74-99) mg/dL Plasma Lactic Acid Dajuan 0.9 (0.7-2.0) mmol/L Calcium (8.4-10.2) mg/dL Magnesium (1.6-2.3) mg/dL Total Bilirubin (0.2-1.3) mg/dL AST (14-36) U/L ALT (4-34) U/L Alkaline Phosphatase (38-126) U/L Troponin I <0.012 (0.000-0.034) ng/mL Total Protein (6.3-8.2) g/dL Albumin (3.5-5.0) g/dL Disposition Clinical Impression: Chest pain Disposition: ADMITTED IP TO THIS HOSP Referrals: Kaz Pavon DO [Primary Care Provider] - 1-2 days Time of Disposition: 13:28
[2021-08-15] MEDS: ASPIRIN 81 MG PO STA ×2 (11:48→11:51)
[2021-08-15 11:55] LABS: Basophils % (A) 1 %; Eosinophils # (A) 0.1 k/uL (0-0.7); Eosinophils % (A) 3 %; HCT 40.4 % (34.0-46.0); HGB 13.6 gm/dL (11.4-16.0); Lymphocytes # (A) 1.4 k/uL (1.0-4.8); Lymphocytes % (A) 28 %; MCH 28.8 pg (25.0-35.0); MCHC 33.7 g/dL (31.0-37.0); MCV 85.2 fL (80.0-100.0); Mean Platelet Volume 8.5; Monocytes # (A) 0.3 k/uL (0-1.0); Monocytes % (A) 5 %; Neutrophils # (A) 3.1 k/uL (1.3-7.7); Neutrophils % (A) 61 %; Platelet Count 191 k/uL (150-450); RBC 4.74 m/uL (3.80-5.40); RDW 14.8 % (11.5-15.5); WBC 5.1 k/uL (3.8-10.6)
[2021-08-15 12:09] LABS: ALT 55 U/L (4-34); AST 40 U/L (14-36); African American GFR (CKD) >90 (>60 ml/min/1.73 sqM); Alkaline Phosphatase 66 U/L (38-126); Anion Gap 10 mmol/L; Blood Urea Nitrogen 17 mg/dL (7-17); Calcium 9.1 mg/dL (8.4-10.2); Carbon Dioxide 19 mmol/L (22-30); Chloride 107 mmol/L (98-107); Glucose 103 mg/dL (74-99); Non-African American GFR(CKD) >90 (>60 ml/min/1.73 sqM); Potassium 4.4 mmol/L (3.5-5.1); Sodium 136 mmol/L (137-145); Total Bilirubin 0.6 mg/dL (0.2-1.3); Total Protein 6.6 g/dL (6.3-8.2)
[2021-08-15 12:13] LABS: Partial Thromboplastin Time 22.3 sec (22.0-30.0); Prothrombin Time 10.8 sec (9.0-12.0)
--- NOTE | 2021-08-15 12:21 | XR ---
EXAMINATION TYPE: XR chest 2V DATE OF EXAM: 08/15/2021 COMPARISON: Chest x-ray 08/08/2017 HISTORY: Difficulty breathing, shortness of breath TECHNIQUE: Frontal and lateral views of the chest are obtained. FINDINGS: There is no focal air space opacity, pleural effusion, or pneumothorax seen. The cardiac silhouette size is within normal limits. Patient is rotated. There are overlying leads. The osseous structures are remarkable for anterior wedge deformity at the lower thoracic spine similar to prior e xam, there is multilevel spondylosis. Aorta is dense. IMPRESSION: No acute cardiopulmonary process.
--- NOTE | 2021-08-15 13:12 | CT ---
EXAMINATION TYPE: CT chest angio for PE DATE OF EXAM: 08/15/2021 COMPARISON: CT dated 03/30/2016. HISTORY: Elevated d-dimer, shortness of breath, hiatal hernia repair [address] DLP: 362 mGy.cm. Automated Exposure Control for Dose Reduction was Utilized. TECHNIQUE AND CONTRAST: CTA scan of the thorax is performed with IV Contrast, patient injected with 100 mL of Isovue 370, pul [facility] angiogram protocol. MIP Images are created on CT scanner and reviewed. FINDINGS: No definite filling defect within the pulmonary trunk, main pulmonary arteries, lobar, segmental and subsegmental branches to suggest pulmonary embolism. Distal subsegmental branches are suboptimally as sessed. The pulmonary trunk is nondilated. No gross cardiomegaly. Tiny air bubbles seen in the medias tinum, likely due to the recent surgery Bilateral basal linear thin pulmonary atelectasis. Unremarkable lungs otherwise. Patent central airwa ys. No pleural or pericardial effusion. Enlarged thyroid gland, please correlate with thyroid functio n tests and elective thyroid ultrasound results. No pathologically enlarged lymph nodes in the chest. Minimal fat stranding surrounding the gastroesop hageal junction. Stable anterior wedging of T10 vertebral body with degenerative changes of the lower thoracic spine IMPRESSION: No evidence of pulmonary embolism. No acute pulmonary abnormality identified. Incidental findings as described above.
[2021-08-15] MEDS ORDERED: NITROGLYCERIN SL TABS 0.4 MG TAB SUBLINGUAL PRN (13:29)
[2021-08-15 13:59] VITALS: BP 140/77; PULSE 59; RESP 20
[2021-08-15] MEDS ORDERED: ACETAMINOPHEN TAB 500 MG TAB PO PRN (14:31)
[2021-08-15] MEDS ORDERED: SIMETHICONE 40 MG/0.6 ML DROPS 2,000 MG/30 ML BOTTLE PO PRN (14:31)
--- NOTE | 2021-08-15 14:37 | P.HPIM ---
<Luis English - Last Filed: 08/15/21 14:50> History of Present Illness H&P Date: 08/15/21 PATIENT LEFT AGAINST MEDICAL ADVICE PRIOR TO BEING SEEN BY INPATIENT PROVIDER. Patient is a 60-year-old female with a past medical history of hypertension, hyperlipidemia, GERD, and type II [id number] diabetes mellitus. Patient presented to the ER with a chief complaint of chest pain reportedly described as a heavy sensation accompanied by shortness of breath. EKG completed showing normal sinus rhythm at 71 bpm with T-wave inversion in inferior leads III and aVF. Chest x-ray negative for acute cardiopulmonary process. CBC unremarkable. Coags normal findings. BMP showing slightly elevated AST of 40 and ALT of 55. Troponin negative at less than 0.012. D-dimer elevated at 1.00. CTA negative for pulmonary emboli. Pt was admitted under our services at 1:29 pm and upon arrival to ER at 14:20 to evaluate and assess patient, it was reported that PATIENT LEFT AGAINST MEDICAL ADVICE PRIOR TO BEING SEEN BY INPATIENT PROVIDER. Past Medical History Past Medical History: No Reported History Additional Past Medical History / Comment(s): migraines. hiatal hernia, diverticulosis History of Any Multi-Drug Resistant Organisms: MRSA Date of last positivie culture/infection: MDRO Source:: buttocks/ face Past Surgical History: Section, Heart Catheterization, Orthopedic Surgery Additional Past Surgical History / Comment(s): tendon repair lt foot, hiatal hernia repair Past Anesthesia/Blood Transfusion Reactions: No Reported Reaction Past Psychological History: No Psychological Hx Reported Smoking Status: Former smoker Past Alcohol Use History: Rare Past Drug Use History: None Reported Medications and Allergies Home Medications Medication Instructions Recorded Confirmed Type Aspirin 81 mg PO QAM 08/08/17 08/15/21 History lisinopriL [Zestril] 20 mg PO QAM 08/08/17 08/15/21 History metFORMIN HCL [Glucophage XR] 500 mg PO QAM 08/08/17 08/15/21 History Rosuvastatin [Crestor] 10 mg PO QAM 05/07/21 08/15/21 History Acetaminophen Tab [Tylenol Tab] 1,000 mg PO Q6HR PRN #30 tablet 08/09/21 08/15/21 Rx Omeprazole [PriLOSEC] 40 mg PO DAILY #30 cap 08/09/21 08/15/21 Rx Ondansetron Odt [Zofran Odt] 4 mg PO Q8HR PRN #9 tab 08/09/21 08/15/21 Rx Simethicone 40 mg/0.6 ml Drops 40 mg PO PCHS PRN #30 ml 08/09/21 08/15/21 Rx [Mylicon Drops] bisacodyL [Dulcolax] 5 mg PO DAILY PRN #10 tab MDD 3 08/09/21 08/15/21 Rx tabs metroNIDAZOLE [metroNIDAZOLE 0.75% 1 applic TOPICAL BID 08/15/21 08/15/21 History Gel] Allergies Allergy/AdvReac Type Severity Reaction Status Date / Time tetanus toxoid, adsorbed Allergy Swelling Verified 08/15/21 12:12 codeine AdvReac Nausea & Verified 08/15/21 12:12 Vomiting morphine AdvReac Nausea & Verified 08/15/21 12:12 Vomiting ALL NARCOTICS AdvReac Nausea & Uncoded 08/09/21 13:21 Vomiting Physical Exam Vitals: Vital Signs Temp Pulse Resp BP Pulse Ox 08/15/21 13:30 59 L 20 140/77 96 08/15/21 13:00 64 20 136/85 95 08/15/21 12:30 64 20 119/64 95 08/15/21 11:45 65 16 117/65 96 08/15/21 11:05 97.7 F 68 18 150/96 99 Intake and Output 08/14/21 08/15/21 08/15/21 22:59 06:59 14:59 Other: Weight 78.018 kg Results CBC & Chem 7: 08/15/21 11:45 08/15/21 11:45 Labs: Abnormal Lab Results - Last 24 Hours (Table) 08/15/21 08/15/21 Range/Units 11:45 11:45 D-Dimer 1.00 H (<0.60) mg/L FEU Sodium 136 L (137-145) mmol/L Carbon Dioxide 19 L (22-30) mmol/L Glucose 103 H (74-99) mg/dL AST 40 H (14-36) U/L ALT 55 H (4-34) U/L <Katja Nichole - Last Filed: 08/15/21 17:18> History of Present Illness I reviewed the documentation as provided by the VIPIN above, who is the original author of this note. I agree with the documented assessment and plan, with the following changes: None Physical Exam Osteopathic Statement: *. No significant issues noted on an osteopathic stru ctural exam other than those noted in the History and Physical/Consult. Vitals: Vital Signs Temp Pulse Resp BP Pulse Ox 08/15/21 13:30 59 L 20 140/77 96 08/15/21 13:00 64 20 136/85 95 08/15/21 12:30 64 20 119/64 95 08/15/21 11:45 65 16 117/65 96 08/15/21 11:05 97.7 F 68 18 150/96 99 Intake and Output 08/15/21 08/15/21 08/15/21 06:59 14:59 22:59 Other: Weight 78.018 kg Results CBC & Chem 7: 08/15/21 11:45 08/15/21 11:45 Labs: Abnormal Lab Results - Last 24 Hours (Table) 08/15/21 08/15/21 Range/Units 11:45 11:45 D-Dimer 1.00 H (<0.60) mg/L FEU Sodium 136 L (137-145) mmol/L Carbon Dioxide 19 L (22-30) mmol/L Glucose 103 H (74-99) mg/dL AST 40 H (14-36) U/L ALT 55 H (4-34) U/L
[2021-08-15] MEDS ORDERED: INSULIN ASPART (NovoLOG) 100 UNIT/ML VIAL SQ SCH (17:30)
[2021-08-15] MEDS ORDERED: NITROGLYCERIN OINT 1 INCH/GM PACKET TOPICAL SCH (18:00)
[2021-08-16] MEDS ORDERED: PANTOPRAZOLE 40 MG TABLET PO SCH (07:30)
[2021-08-16] MEDS ORDERED: lisinopriL 20 MG TAB PO SCH (09:00)
[2021-08-16] MEDS ORDERED: ASPIRIN 325 MG TAB PO SCH (09:00)
[2021-08-16] MEDS ORDERED: ATORVASTATIN 20 MG TAB PO SCH (09:00)
== END 2021-08-15 14:08 | disposition left against medical advice (07) ==
LOC: EC 11:00 → 6NMEDSUR 13:29
PROVIDERS: ADMIT Internal Medicine; ATTEND Internal Medicine
DX: R06.02 Shortness of breath (principal); R07.89 Other chest pain; E11.9 Type 2 diabetes mellitus without complications; E78.00 Pure hypercholesterolemia, unspecified; E78.5 Hyperlipidemia, unspecified; I10 Essential (primary) hypertension; K21.9 Gastro-esophageal reflux disease without esophagitis; R74.01 Elevation of levels of liver transaminase levels; J98.11 Atelectasis; K44.9 Diaphragmatic hernia without obstruction or gangrene; K57.90 Diverticulosis of intestine, part unspecified, without perforation or abscess without bleeding; Z79.82 Long term (current) use of aspirin; Z79.84 Long term (current) use of oral hypoglycemic drugs; Z88.7 Allergy status to serum and vaccine; Z88.5 Allergy status to narcotic agent; Z87.891 Personal history of nicotine dependence; Z86.14 Personal history of Methicillin resistant Staphylococcus aureus infection; Z53.29 Procedure and treatment not carried out because of patient's decision for other reasons; Z86.69 Personal history of other diseases of the nervous system and sense organs
CPT/HCPCS: 99285; 36415; 93005; 85379; 80053; 83605; 83735; 84484; 85025; 85610; 85730; 71046; 71275; G0378; Q9967

== ENCOUNTER → 2021-09-03 | Outpatient (CLI) | payer BC ==
[2021-09-03 11:30] LABS: Partial Thromboplastin Time 22.7 sec (22.0-30.0); Prothrombin Time 10.8 sec (9.0-12.0)
[2021-09-03 14:17] LABS: HCT 40.1 % (37.2-46.3); HGB 12.8 g/dL (12.0-15.0); MCH 27.5 pg (27.0-32.0); MCHC 31.9 g/dL (32.0-37.0); MCV 86.2 fL (80.0-97.0); Mean Platelet Volume 11.7 fL (9.5-12.2); NRBC Per 100 WBC 0 /100 WBCS (0.0-0.0); Platelet Count 194 X 10*3/uL (140-440); RBC 4.65 X 10*6/uL (4.10-5.20); RDW 14.4 % (11.5-14.5); WBC 3.59 X 10*3/uL (4.50-10.00)
[2021-09-03 14:43] LABS: % Iron Saturation 17.49 (12.00-45.00); ALT 38 U/L (8-44); AST 21 U/L (13-35); African American GFR (CKD) 117.2 (60.0-200.0); Albumin 4.4 g/dL (3.8-4.9); Albumin/Globulin Ratio 2.63 (1.60-3.17); Alkaline Phosphatase 84 U/L (41-126); BUN/Creat Ratio 27.38 Ratio (12.00-20.00); Blood Urea Nitrogen 16.1 mg/dL (9.0-27.0); Calcium 9.3 mg/dL (8.7-10.3); Carbon Dioxide 21.2 mmol/L (20.0-27.5); Chloride 106 mmol/L (96-109); Globulin 1.7 g/dL (1.6-3.3); Glucose 163 mg/dL (70-110); Iron 65 ug/dL (50-170); Magnesium 2.1 mg/dL (1.5-2.4); Non-African American GFR(CKD) 101.1 (60.0-200.0); Phosphorus 3.6 mg/dL (2.4-5.1); Potassium 4.1 mmol/L (3.5-5.5); Sodium 139 mmol/L (135-145); Total Iron Binding Capacity 371 ug/dL (228-460); Total Protein 6.1 g/dL (6.2-8.2)
[2021-09-03 17:49] LABS: Chol/HDL Ratio 2.39 Ratio; LDL Cholesterol,Calculated 46.6 mg/dL (0.0-131.0)
[2021-09-04 13:29] LABS: Zinc, Serum 78 ug/dL (60-130)
[2021-09-05 06:09] LABS: Vitamin A 37 ug/dL (38-106)
== END | disposition home or self-care (01) ==
LOC: LABWHC1 10:13
PROVIDERS: ATTEND Surgery Plastic and Reconstructive Surgery
DX: E55.9 Vitamin D deficiency, unspecified (principal); E66.01 Morbid (severe) obesity due to excess calories; E21.1 Secondary hyperparathyroidism, not elsewhere classified; E89.1 Postprocedural hypoinsulinemia; E44.0 Moderate protein-calorie malnutrition; K50.90 Crohn's disease, unspecified, without complications; K74.1 Hepatic sclerosis; D50.8 Other iron deficiency anemias; N19 Unspecified kidney failure
CPT/HCPCS: 36415; 80053; 80061; 82306; 82525; 82607; 82728; 82746; 83036; 83540; 83550; 83735; 83970; 84100; 84134; 84255; 84425; 84443; 84590; 84630; 85027; 85610; 85730

== ENCOUNTER 2023-04-20 11:55 | Observation (INO) | payer BC ==
[2023-04-20] MEDS ORDERED: ACETAMINOPHEN TAB 500 MG TAB PO STA (12:37)
[2023-04-20] MEDS ORDERED: NITROGLYCERIN OINT 1 INCH/GM PACKET TOPICAL STA (12:37)
[2023-04-20] MEDS ORDERED: ASPIRIN 81 MG PO STA (12:37)
--- NOTE | 2023-04-20 12:40 | ED ---
General Adult HPI - General Chief complaint: Chest Pain Stated complaint: Chest Pain Time Seen by Provider: 04/20/23 12:25 Source: patient, RN notes reviewed, old records reviewed Mode of arrival: ambulatory Limitations: no limitations - History of Present Illness Initial comments: This a 62-year-old female who presents to the emergency department with a past medical history significant for diabetes hypertension high cholesterol. Patient states she's been having some fluttering in her chest for the last few days but today she has a significant heavy chest radiates to the back between his shoulder. Patient states she's mild short of breath and it feels like someone sitting on her chest. Patient denies any diaphoretic episodes. Patient denies nausea. Patient states she does have palpitations at times only last for a few seconds and then makes her feel weird in her head and then sometimes she has a headache after that. Patient denies any fever chills or cough. Patient denies any abdominal pain patient is not vomiting diarrhea. Patient denies any lower back pain. - Related Data Home Medications Medication Instructions Recorded Confirmed Aspirin 81 mg PO QAM 08/08/17 08/15/21 lisinopriL [Zestril] 20 mg PO QAM 08/08/17 08/15/21 metFORMIN HCL [Glucophage XR] 500 mg PO QAM 08/08/17 08/15/21 Rosuvastatin [Crestor] 10 mg PO QAM 05/07/21 08/15/21 metroNIDAZOLE [metroNIDAZOLE 0.75% 1 applic TOPICAL BID 08/15/21 08/15/21 Gel] Previous Rx's Medication Instructions Recorded Acetaminophen Tab [Tylenol Tab] 1,000 mg PO Q6HR PRN #30 tablet 08/09/21 Omeprazole [PriLOSEC] 40 mg PO DAILY #30 cap 08/09/21 Ondansetron Odt [Zofran Odt] 4 mg PO Q8HR PRN #9 tab 08/09/21 Simethicone 40 mg/0.6 ml Drops 40 mg PO PCHS PRN #30 ml 08/09/21 [Mylicon Drops] bisacodyL [Dulcolax] 5 mg PO DAILY PRN #10 tab MDD 3 08/09/21 tabs Allergies Allergy/AdvReac Type Severity Reaction Status Date / Time tetanus toxoid, adsorbed Allergy Swelling Verified 04/20/23 12:00 codeine AdvReac Nausea & Verified 04/20/23 12:00 Vomiting morphine AdvReac Nausea & Verified 04/20/23 12:00 Vomiting ALL NARCOTICS AdvReac Nausea & Uncoded 04/20/23 12:00 Vomiting Review of Systems ROS Statement: Those systems with pertinent positive or pertinent negative responses have been documented in the HPI. ROS Other: All systems not noted in ROS Statement are negative. Past Medical History Past Medical History: No Reported History Additional Past Medical History / Comment(s): migraines. hiatal hernia, diverticulosis History of Any Multi-Drug Resistant Organisms: MRSA Date of last positivie culture/infection: MDRO Source:: buttocks/ face Past Surgical History: Section, Heart Catheterization, Orthopedic Surgery Additional Past Surgical History / Comment(s): tendon repair lt foot, hiatal hernia repair Past Anesthesia/Blood Transfusion Reactions: No Reported Reaction Past Psychological History: No Psychological Hx Reported Smoking Status: Former smoker Past Alcohol Use History: Rare Past Drug Use History: None Reported General Exam - General Exam Comments Initial Comments: GENERAL: Patient is well-developed and well-nourished. Patient is nontoxic and well- hydrated and is in mild distress. ENT: Neck is soft and supple. No significant lymphadenopathy is noted. Oropharynx is clear. Moist mucous membranes. Neck has full range of motion without eliciting any pain. EYES: The sclera were anicteric and conjunctiva were pink and moist. Extraocular movements were intact and pupils were equal round and reactive to light. Eyelids were unremarkable. PULMONARY: Unlabored respirations. Good breath sounds bilaterally. No audible rales rhonchi or wheezing was noted. CARDIOVASCULAR: There is a regular rate and rhythm without any murmurs gallops or rubs. ABDOMEN: Soft and nontender with normal bowel sounds. SKIN: Skin is clear with no lesions or rashes and otherwise unremarkable. NEUROLOGIC: Patient is alert and oriented x3. Cranial nerves II through XII are grossly intact. Motor and sensory are also intact. Normal speech, volume and content. Symmetrical smile. MUSCULOSKELETAL: Normal extremities with adequate strength and full range of motion. No lower extremity swelling or edema. No calf tenderness. LYMPHATICS: No significant lymphadenopathy is noted PSYCHIATRIC: Normal psychiatric evaluation. Limitations: no limitations Course Vital Signs 04/20/23 04/20/23 04/20/23 11:56 12:57 13:09 Temperature 96.9 F L Pulse Rate 72 68 Respiratory 18 20 20 Rate Blood Pressure 188/86 161/82 O2 Sat by Pulse 97 99 Oximetry Medical Decision Making - Medical Decision Making EKG is interpreted by myself. EKG shows a sinus rhythm at 65 bpm AR interval 241 cardiac is 88 QT interval 380 QTC is 400. Patient's EKG shows no ST segment elevation or depression. Was pt. sent in by a medical professional or institution (, GERARD, SCIENTIST, urgent care, hospital, or [facility]...) When possible be specific @ -No Did you speak to anyone other than the patient for history (EMS, parent, family, police, friend...)? What history was obtained from this source @ -No Did you review nursing and triage notes (agree or disagree)? Why? @ -I reviewed and agree with nursing and triage notes Were old charts reviewed (outside hosp., previous admission, EMS record, old EKG, old radiological studies, urgent care reports/EKG's, [facility] records)? Report findings @ -No old charts were reviewed Differential Diagnosis (chest pain, altered mental status, abdominal pain women, abdominal pain men, vaginal bleeding, weakness, fever, dyspnea, syncope, headache, dizziness, GI bleed, back pain, seizure, CVA, palpatations, mental health, musculoskeletal)? @ -Differential Chest Pain: Stable Angina, Unstable Angina, STEMI, NSTEMI Aortic Dissection, Pneumothorax, Musculoskeletal, Esophageal Spasm GERD, Cholecystitis, Pancreatitis, Zoster, this is not meant to be an all-inclusive list. EKG interpreted by me (3pts min.). @ -As above X-rays interpreted by me (1pt min.). @ -Chest x-ray shows no acute abnormality CT interpreted by me (1pt min.). @ -None done U/S interpreted by me (1pt. min.). @ -None done What testing was considered but not performed or refused? (CT, X-rays, U/S, labs)? Why? @ -None What meds were considered but not given or refused? Why? @ -None Did you discuss the management of the patient with other professionals (professionals i.e. GERARD Venegas, SCIENTIST, lab, RT, psych nurse, social media strategist, copywriting intern, teacher, registration officer, keycase assembler)? Give summary @ -I spoke with the [facility] hospitalist and they've agreed to admit the patient admitted the patient wrote admitting orders Was smoking cessation discussed for >3mins.? @ -No Was critical care preformed (if so, how long)? @ -No Were there social determinants of health that impacted care today? How? (Homelessness, low income, unemployed, alcoholism, drug addiction, transportation, low edu. Level, literacy, decrease access to med. care, halfway, rehab)? @ -No Was there de-escalation of care discussed even if they declined (Discuss DNR or withdrawal of care, Hospice)? DNR status @ -No What co-morbidities impacted this encounter? (DM, HTN, Smoking, COPD, CAD, Cancer, CVA, ARF, Chemo, Hep., AIDS, mental health diagnosis, sleep apnea, morbid obesity)? @ -None Was patient admitted / discharged? Hospital course, mention meds given and route, prescriptions, significant lab abnormalities, going to OR and other pertinent info. @ -She was given aspirin and Nitropaste as well as some Tylenol for the headache. Patient states the Nitropaste took away most of her pain. She only has a very subtle pain now in her chest. Patient's lab work showed no acute abnormalities x-ray showed no acute normalities. I spoke with the [facility] admit the patient admitted the patient wrote admitting orders I consulted cardiology Undiagnosed new problem with uncertain prognosis? @ -No Drug Therapy requiring intensive monitoring for toxicity (Heparin, Nitro, Insulin, Cardizem)? @ -No Were any procedures done? @ -No Diagnosis/symptom? @ -Chest pain Acute, or Chronic, or Acute on Chronic? @ -Acute Uncomplicated (without systemic symptoms) or Complicated (systemic symptoms)? @ -Complicated Side effects of treatment? @ -No Exacerbation, Progression, or Severe Exacerbation? @ -No Poses a threat to life or bodily function? How? (Chest pain, USA, VT, pneumonia, PE, COPD, DKA, ARF, appy, cholecystitis, CVA, Diverticulitis, Homicidal, Suicidal, threat to staff... and all critical care pts) @ -Yes this could lead to an VT and end organ dysfunction - Lab Data Result diagrams: 04/20/23 12:29 04/20/23 12:29 Lab Results 04/20/23 04/20/23 04/20/23 Range/Units 12:29 12:29 12:29 WBC 4.6 (3.8-10.6) k/uL RBC 4.59 (3.80-5.40) m/uL Hgb 13.6 (11.4-16.0) gm/dL Hct 40.9 (34.0-46.0) % MCV 89.0 (80.0-100.0) fL MCH 29.6 (25.0-35.0) pg MCHC 33.3 (31.0-37.0) g/dL RDW 13.6 (11.5-15.5) % Plt Count 212 (150-450) k/uL MPV 8.0 Neutrophils % 50 % Lymphocytes % 38 % Monocytes % 5 % Eosinophils % 4 % Basophils % 1 % Neutrophils # 2.3 (1.3-7.7) k/uL Lymphocytes # 1.7 (1.0-4.8) k/uL Monocytes # 0.3 (0-1.0) k/uL Eosinophils # 0.2 (0-0.7) k/uL Basophils # 0.0 (0-0.2) k/uL PT 10.3 (10.0-12.5) sec INR 0.9 (<1.2) APTT 22.2 (22.0-30.0) sec Sodium 139 (137-145) mmol/L Potassium 4.1 (3.5-5.1) mmol/L Chloride 105 (98-107) mmol/L Carbon Dioxide 24 (22-30) mmol/L Anion Gap 10 mmol/L BUN 15 (7-17) mg/dL Creatinine 0.56 (0.52-1.04) mg/dL Est GFR (CKD-EPI)AfAm >90 (>60 ml/min/1.73 sqM) Est GFR (CKD-EPI)NonAf >90 (>60 ml/min/1.73 sqM) Glucose 144 H (74-99) mg/dL Calcium 9.5 (8.4-10.2) mg/dL Magnesium 2.1 (1.6-2.3) mg/dL Total Bilirubin 0.4 (0.2-1.3) mg/dL AST 25 (14-36) U/L ALT 29 (4-34) U/L Alkaline Phosphatase 70 (38-126) U/L Troponin I (0.000-0.034) ng/mL Total Protein 7.0 (6.3-8.2) g/dL Albumin 4.5 (3.5-5.0) g/dL 04/20/23 Range/Units 12:29 WBC (3.8-10.6) k/uL RBC (3.80-5.40) m/uL Hgb (11.4-16.0) gm/dL Hct (34.0-46.0) % MCV (80.0-100.0) fL MCH (25.0-35.0) pg MCHC (31.0-37.0) g/dL RDW (11.5-15.5) % Plt Count (150-450) k/uL MPV Neutrophils % % Lymphocytes % % Monocytes % % Eosinophils % % Basophils % % Neutrophils # (1.3-7.7) k/uL Lymphocytes # (1.0-4.8) k/uL Monocytes # (0-1.0) k/uL Eosinophils # (0-0.7) k/uL Basophils # (0-0.2) k/uL PT (10.0-12.5) sec INR (<1.2) APTT (22.0-30.0) sec Sodium (137-145) mmol/L Potassium (3.5-5.1) mmol/L Chloride (98-107) mmol/L Carbon Dioxide (22-30) mmol/L Anion Gap mmol/L BUN (7-17) mg/dL Creatinine (0.52-1.04) mg/dL Est GFR (CKD-EPI)AfAm (>60 ml/min/1.73 sqM) Est GFR (CKD-EPI)NonAf (>60 ml/min/1.73 sqM) Glucose (74-99) mg/dL Calcium (8.4-10.2) mg/dL Magnesium (1.6-2.3) mg/dL Total Bilirubin (0.2-1.3) mg/dL AST (14-36) U/L ALT (4-34) U/L Alkaline Phosphatase (38-126) U/L Troponin I <0.012 (0.000-0.034) ng/mL Total Protein (6.3-8.2) g/dL Albumin (3.5-5.0) g/dL Disposition Clinical Impression: Chest pain Disposition: ADMITTED IP TO THIS [facility] Time of Disposition: 13:40
[2023-04-20 12:41] LABS: Basophils % (A) 1 %; Eosinophils # (A) 0.2 k/uL (0-0.7); Eosinophils % (A) 4 %; HCT 40.9 % (34.0-46.0); HGB 13.6 gm/dL (11.4-16.0); Lymphocytes # (A) 1.7 k/uL (1.0-4.8); Lymphocytes % (A) 38 %; MCH 29.6 pg (25.0-35.0); MCHC 33.3 g/dL (31.0-37.0); Monocytes # (A) 0.3 k/uL (0-1.0); Monocytes % (A) 5 %; Neutrophils # (A) 2.3 k/uL (1.3-7.7); Neutrophils % (A) 50 %; Platelet Count 212 k/uL (150-450); RBC 4.59 m/uL (3.80-5.40); RDW 13.6 % (11.5-15.5); WBC 4.6 k/uL (3.8-10.6)
--- NOTE | 2023-04-20 12:56 | XR ---
EXAMINATION TYPE: XR chest 2V DATE OF EXAM: 04/20/2023 COMPARISON: NONE TECHNIQUE: PA and lateral views submitted. HISTORY: Chest pain FINDINGS: The lungs are clear and there is no pneumothorax, pleural effusion, or focal pneumonia. Heart size normal and no overt failure. Osseous structures demonstrate hypertrophic and degenerative changes of the spine. A chronic-appearing wedge deformity midthoracic spine. IMPRESSION: 1. No acute process.
[2023-04-20 12:59] LABS: INR 0.9 (<1.2); Partial Thromboplastin Time 22.2 sec (22.0-30.0); Prothrombin Time 10.3 sec (10.0-12.5)
[2023-04-20 13:04] LABS: ALT 29 U/L (4-34); AST 25 U/L (14-36); African American GFR (CKD) >90 (>60 ml/min/1.73 sqM); Albumin 4.5 g/dL (3.5-5.0); Alkaline Phosphatase 70 U/L (38-126); Anion Gap 10 mmol/L; Blood Urea Nitrogen 15 mg/dL (7-17); Calcium 9.5 mg/dL (8.4-10.2); Carbon Dioxide 24 mmol/L (22-30); Chloride 105 mmol/L (98-107); Glucose 144 mg/dL (74-99); Magnesium 2.1 mg/dL (1.6-2.3); Non-African American GFR(CKD) >90 (>60 ml/min/1.73 sqM); Potassium 4.1 mmol/L (3.5-5.1); Sodium 139 mmol/L (137-145); Total Bilirubin 0.4 mg/dL (0.2-1.3)
[2023-04-20] MEDS ORDERED: NITROGLYCERIN SL TABS 0.4 MG TAB SUBLINGUAL PRN (13:40)
[2023-04-20] MEDS ORDERED: MORPHINE SULFATE 2 MG/ML SYRINGE IVP STA (16:34)
[2023-04-20] MEDS ORDERED: HYDROmorphone 0.5 MG/0.5 ML SYRINGE IM STA (16:39)
[2023-04-20] MEDS ORDERED: ONDANSETRON 4 MG/2 ML VIAL IVP STA (16:51)
--- NOTE | 2023-04-20 17:11 | CT ---
EXAMINATION TYPE: CT brain wo con DATE OF EXAM: 04/20/2023 COMPARISON: None INDICATION: headache DLP: 1105.3 mGycm, Automated exposure control for dose reduction was used. CONTRAST: None CT of the brain is performed utilizing 3 mm thick sections through the posterior fossa and 3 mm thick sections through the remaining calvarium. Study is performed within 24 hours of arrival to the hosp ital. No abnormal hyperdensity is present to suggest an acute intracranial hemorrhage. No mass lesion is evident. No acute infarcts are evident. There is some hypodensity within the cerebellum which is symmetrical a nd felt to more likely be artifactual. Ventricles and sulci are appropriate for the patient age. Paranasal sinuses and mastoid air cells within the [id number] are clear. IMPRESSION: 1. No acute intracranial process. Some hypodensity within the medial cerebellar lobes bilaterally i s felt to be more artifactual. Follow-up with MRI can be performed as clinically indicated.
[2023-04-20] MEDS: NITROGLYCERIN OINT 1 INCH/GM PACKET TOPICAL SCH ×2 (19:22→23:24)
[2023-04-20] MEDS: ACETAMINOPHEN TAB 325 MG TAB PO PRN (23:23)
[2023-04-20] MEDS ORDERED: DEXTROSE 50% SYRINGE 50 ML IVP PRN ×2 (23:37)
[2023-04-21] MEDS: HEPARIN SODIUM,PORCINE 5,000 UNIT/ML 1 ML VIAL SQ SCH ×3 (00:02→15:36)
--- NOTE | 2023-04-21 00:14 | P.HPIM ---
History of Present Illness H&P Date: 04/20/23 Chief Complaint: Chest pain Patient is a 62-year-old female with a past medical history of migraine headaches, hiatal hernia, history of cardiac catheterization and prior history of smoking quit in 1998 presents to ER with complaints of chest pain. Patient states that she started having chest pain mainly across the lower sternal region and between the shoulder blades. Pressure-like sensation also felt like someone sitting on the chest. She is also complaining of left shoulder pain. Persistent with mild shortness of breath. No nausea vomiting or diaphoresis. Patient states that yesterday while at work she felt like her heart fluttering for few seconds followed by fullness in the head like head morales as per patient. Denies any recent illnesses. No fever or chills. No cough or sputum production. Denies any nausea vomiting or abdominal pain or diarrhea. Patient did have prior history of cardiac catheterization. Patient states that she was given nitro in the ER which did not relieve her symptoms and gave her headache. EKG showed sinus rhythm. Chest x-ray showed no acute process. CT head showed no acute intracranial process. Some hypodensity within the medial cerebellar lobes bilaterally is felt to be more artifactual. Laboratory within normal limits. Troponin x3 negative. On admission blood pressure 188/86 pulse 72 respiration 18 pulse ox 97% on room air. Review of Systems Constitutional: Patient denies any fever or chills . no Generalized weakness. Abdomen: Patient denied any nausea or vomiting or abd. pain Cardiovascular: Patient denies any chest pain or short of breath no palpitations. Respiratory: patient denied any cough . no sputum production. No shortness of breath Neurologic: Patient denied any numbness or tingling or headache. Musculoskeletal: Patient denies any complaints of joint swelling or deformity. Skin: Negative Psychiatric: Negative Endocrine: No heat or cold intolerance. No recent weight gain. Genitourinary: No dysuria or hematuria. All other 14 point ROS negative except the above Past Medical History Past Medical History: No Reported History Additional Past Medical History / Comment(s): migraines. hiatal hernia, dive rticulosis History of Any Multi-Drug Resistant Organisms: MRSA Date of last positivie culture/infection: MDRO Source:: buttocks/ face Past Surgical History: Section, Heart Catheterization, Orthopedic Surgery Additional Past Surgical History / Comment(s): tendon repair lt foot, hiatal hernia repair Past Anesthesia/Blood Transfusion Reactions: No Reported Reaction Past Psychological History: No Psychological Hx Reported Smoking Status: Former smoker Past Alcohol Use History: Rare Additional Past Alcohol Use History / Comment(s): former smoker quit 1998 Past Drug Use History: None Reported Medications and Allergies Home Medications Medication Instructions Recorded Confirmed Type metFORMIN HCL [Glucophage XR] 500 mg PO DAILY 08/08/17 04/20/23 History Aspirin EC [Ecotrin Low Dose] 81 mg PO DAILY 04/20/23 04/20/23 History Docusate [Colace] 100 mg PO DAILY 04/20/23 04/20/23 History Lisinopril-Hctz 20-12.5 mg 1 tab PO DAILY 04/20/23 04/20/23 History [Zestoretic 20-12.5] Rosuvastatin Calcium 5 mg PO DAILY 04/20/23 04/20/23 History Allergies Allergy/AdvReac Type Severity Reaction Status Date / Time tetanus toxoid, adsorbed Allergy Swelling Verified 04/20/23 13:52 codeine AdvReac Nausea & Verified 04/20/23 13:52 Vomiting morphine AdvReac Nausea & Verified 04/20/23 13:52 Vomiting ALL NARCOTICS AdvReac Nausea & Uncoded 04/20/23 13:52 Vomiting Physical Exam Vitals: Vital Signs Temp Pulse Pulse Resp BP BP Pulse Ox 04/20/23 17:59 97.3 F L 72 16 164/89 94 L 04/20/23 17:08 72 16 114/78 98 04/20/23 15:38 80 16 138/82 98 04/20/23 15:00 86 16 180/88 98 04/20/23 13:09 68 20 161/82 99 04/20/23 12:57 20 04/20/23 11:56 96.9 F L 72 18 188/86 97 Intake and Output 04/20/23 04/20/23 04/20/23 06:59 14:59 22:59 Other: Weight 79.832 kg 79.832 kg PHYSICAL EXAMINATION: Patient is lying in the bed comfortably, no acute distress, awake alert and oriented.. HEENT: Normocephalic. Neck is supple. Pupils reactive. Nostrils clear. Oral cavity is moist. Neck reveals no JVD, carotid bruits, or thyromegaly. CHEST EXAMINATION: Trachea is central. Symmetrical expansion. Lung brower clear to auscultation and percussion. CARDIAC: Normal S1, S2 with no gallops. No murmurs ABDOMEN: Soft. Bowel sounds present. Nontender. No organomegaly. No abdominal bruits. Extremities: reveal no edema. No clubbing or cyanosis Neurologically awake, alert, oriented x3 with well-coordinated movements. No focal deficits noted Skin: No rash or skin lesions. Psychiatric: Coperative. Nonsuicidal, Musculoskeletal: No joint swelling or deformity. Normal range of motion. Results CBC & Chem 7: 04/20/23 12:29 04/20/23 12:29 Labs: Abnormal Lab Results - Last 24 Hours (Table) 04/20/23 Range/Units 12:29 Glucose 144 H (74-99) mg/dL Thrombosis Risk Factor Assmnt - DVT/VTE Prophylaxis DVT/VTE Prophylaxis: Pharmacologic Prophylaxis ordered - Choose All That Apply Each Factor Represents 1 point: Age 41-60 years Thrombosis Risk Factor Assessment Total Risk Factor Score: 1 Thrombosis Risk Factor Assessment Level: Low Risk Assessment and Plan Assessment: Possible cardiac chest pain. Rule out ACS. Uncontrolled hypertension Diabetes type 2 [id number] Migraine headaches Hiatal hernia history Prior history of cardiac catheters Prior history of smoking GI and DVT prophylaxis. With Pepcid and heparin subcu Plan: Patient will be continued on telemetry monitoring. Serial EKG and troponin x3 negative. Cardiology consult for further evaluation. Follow-up A1c and TSH levels. Continue with insulin sliding scale. Continue home medications and follow-up closely.
[2023-04-21] MEDS: ACETAMINOPHEN TAB 325 MG TAB PO PRN (05:34)
[2023-04-21] MEDS: NITROGLYCERIN OINT 1 INCH/GM PACKET TOPICAL SCH ×2 (05:35→09:05)
[2023-04-21 06:21] LABS: Glucose,Whole Blood 106 mg/dL (70-110)
[2023-04-21] MEDS: INSULIN ASPART (NovoLOG) 100 UNIT/ML VIAL SQ SCH ×2 (06:22→12:32)
[2023-04-21 07:45] VITALS: RESP 14
[2023-04-21] MEDS ORDERED: LISINOPRIL-HCTZ 20-12.5 MG 1 EACH TAB PO SCH (09:00)
[2023-04-21] MEDS ORDERED: FAMOTIDINE 20 MG TAB PO SCH (09:00)
[2023-04-21] MEDS ORDERED: DOCUSATE 100 MG CAP PO SCH (09:00)
[2023-04-21] MEDS ORDERED: ATORVASTATIN 10 MG TAB PO SCH (09:00)
[2023-04-21] MEDS ORDERED: ASPIRIN 325 MG TAB PO SCH (09:00)
[2023-04-21] MEDS ORDERED: KETOROLAC 15 MG/ML 1 ML VIAL IVP STA ×2 (09:07→15:51)
--- NOTE | 2023-04-21 10:23 | P.CRDCN ---
History of Present Illness Consult date: 04/21/23 Requesting physician: Carolyn Sheehan Reason for Consult (text): chest pain Chief complaint: chest pressure History of present illness: This is a pleasant 62-year-old female who was last seen in the office by Dr. Mcginnis in May 2021 at which time she underwent testing for preoperative clearance and a stress echocardiogram at that time showed no evidence of ischemia. She is a history of hypertension, hyperlipidemia, diabetes and ex- smoker. She presented to the emergency department with complaints of chest pressure across her chest radiating into her back that's been quite persistent. EKG on presentation showed sinus mechanism with no evidence of ischemia. Chest x-ray showed no acute process. Repeat enzymes have been unremarkable. She continues to have the pressure in the chest, does not seem to be reproducible without any aggravating or relieving factors. She has mild stable dyspnea on exertion. She denies any orthopnea, PND or edema. She said no nausea or vomiting. She's had occasional palpitations him a brief period she was having some lightheadedness and a computed tomography scan of the brain showed no acute intracranial process, some hypodensity within the medial cerebellar lobes bilaterally felt to be more artifactual, follow-up with MRI can be performed as clinically indicated. Past Medical History Past Medical History: No Reported History Additional Past Medical History / Comment(s): migraines. hiatal hernia, diverticulosis History of Any Multi-Drug Resistant Organisms: MRSA Date of last positivie culture/infection: MDRO Source:: buttocks/ face Past Surgical History: Section, Heart Catheterization, Orthopedic Surgery Additional Past Surgical History / Comment(s): tendon repair lt foot, hiatal hernia repair Past Anesthesia/Blood Transfusion Reactions: No Reported Reaction Past Psychological History: No Psychological Hx Reported Smoking Status: Former smoker Past Alcohol Use History: Rare Additional Past Alcohol Use History / Comment(s): former smoker quit 1998 Past Drug Use History: None Reported Medications and Allergies Home Medications Medication Instructions Recorded Confirmed Type metFORMIN HCL [Glucophage XR] 500 mg PO DAILY 08/08/17 04/20/23 History Aspirin EC [Ecotrin Low Dose] 81 mg PO DAILY 04/20/23 04/20/23 History Docusate [Colace] 100 mg PO DAILY 04/20/23 04/20/23 History Lisinopril-Hctz 20-12.5 mg 1 tab PO DAILY 04/20/23 04/20/23 History [Zestoretic 20-12.5] Rosuvastatin Calcium 5 mg PO DAILY 04/20/23 04/20/23 History Allergies Allergy/AdvReac Type Severity Reaction Status Date / Time tetanus toxoid, adsorbed Allergy Swelling Verified 04/20/23 13:52 codeine AdvReac Nausea & Verified 04/20/23 13:52 Vomiting morphine AdvReac Nausea & Verified 04/20/23 13:52 Vomiting ALL NARCOTICS AdvReac Nausea & Uncoded 04/20/23 13:52 Vomiting Physical Exam Vitals: Vital Signs Temp Pulse Pulse Resp BP BP Pulse Ox 04/21/23 07:00 97.7 F 63 14 159/83 100 04/21/23 00:04 97.8 F 66 16 162/84 95 04/20/23 20:00 85 04/20/23 19:45 97.4 F L 85 15 122/73 97 04/20/23 17:59 97.3 F L 72 16 164/89 94 L 04/20/23 17:08 72 16 114/78 98 04/20/23 15:38 80 16 138/82 98 04/20/23 15:00 86 16 180/88 98 04/20/23 13:09 68 20 161/82 99 04/20/23 12:57 20 04/20/23 11:56 96.9 F L 72 18 188/86 97 Intake and Output 04/20/23 04/21/23 04/21/23 22:59 06:59 14:59 Other: # Voids 1 2 Weight 79.832 kg PHYSICAL EXAMINATION: This is a 62-year-old female in no apparent distress at the time of my examination. VITAL SIGNS: Reviewed HEENT: Head is atraumatic, normocephalic. Pupils are equal, round. Sclerae anicteric. Conjunctivae are clear. Mucous membranes of the mouth are moist. Neck is supple. There is no elevated jugular venous pressure. No carotid bruit is heard. CHEST EXAMINATION: Clear to auscultation bilaterally. No wheezes rales or rhonchi. Respirations even and nonlabored. HEART EXAMINATION: Heart regular, positive S1 and S2. No S3. No S4. No clicks, rubs or murmurs. ABDOMEN: Soft, nontender. Bowel sounds are heard. No organomegaly noted. EXTREMITIES: 2+ peripheral pulses with no evidence of peripheral edema and no calf tenderness noted. NEUROLOGIC EXAMINATION: Patient is awake, alert and oriented x3. Results 04/20/23 12:29 04/20/23 12:29 Cardiac Enzymes 04/20/23 04/20/23 04/20/23 Range/Units 12:29 12:29 15:35 AST 25 (14-36) U/L Troponin I <0.012 <0.012 (0.000-0.034) ng/mL 04/20/23 Range/Units 17:59 AST (14-36) U/L Troponin I <0.012 (0.000-0.034) ng/mL Coagulation 04/20/23 Range/Units 12:29 PT 10.3 (10.0-12.5) sec APTT 22.2 (22.0-30.0) sec CBC 04/20/23 Range/Units 12:29 WBC 4.6 (3.8-10.6) k/uL RBC 4.59 (3.80-5.40) m/uL Hgb 13.6 (11.4-16.0) gm/dL Hct 40.9 (34.0-46.0) % Plt Count 212 (150-450) k/uL Comprehensive Metabolic Panel 04/20/23 Range/Units 12:29 Sodium 139 (137-145) mmol/L Potassium 4.1 (3.5-5.1) mmol/L Chloride 105 (98-107) mmol/L Carbon Dioxide 24 (22-30) mmol/L BUN 15 (7-17) mg/dL Creatinine 0.56 (0.52-1.04) mg/dL Glucose 144 H (74-99) mg/dL Calcium 9.5 (8.4-10.2) mg/dL AST 25 (14-36) U/L ALT 29 (4-34) U/L Alkaline Phosphatase 70 (38-126) U/L Total Protein 7.0 (6.3-8.2) g/dL Albumin 4.5 (3.5-5.0) g/dL Current Medications Generic Name Dose Route Start Last Admin Trade Name Freq PRN Reason Stop Dose Admin Acetaminophen 650 mg 04/20/23 23:13 04/21/23 05:34 Acetaminophen Tab 325 Mg Tab PO 650 mg Q6HR PRN Administration Fever and/ or Pain Aspirin 325 mg 04/21/23 09:00 04/21/23 08:29 Aspirin 325 Mg Tab PO 325 mg DAILY SARAH Administration Atorvastatin Calcium 10 mg 04/21/23 09:00 04/21/23 08:29 Atorvastatin 10 Mg Tab PO 10 mg DAILY SARAH Administration Dextrose/Water 25 ml 04/20/23 23:37 Dextrose 50% Syringe 50 Ml IVP PER PROTOCOL PRN Hypoglycemia Protocol Dextrose/Water 50 ml 04/20/23 23:37 Dextrose 50% Syringe 50 Ml IVP PER PROTOCOL PRN Hypoglycemia Protocol Docusate Sodium 100 mg 04/21/23 09:00 04/21/23 08:30 Docusate 100 Mg Cap PO 100 mg DAILY SARAH Administration Famotidine 20 mg 04/21/23 09:00 04/21/23 08:29 Famotidine 20 Mg Tab PO 20 mg BID SARAH Administration Lisinopril/HCTZ 1 each 04/21/23 09:00 04/21/23 08:30 Lisinopril-Hctz 20-12.5 Mg 1 Each Tab PO 1 each DAILY SAARH Administration Heparin Sodium (Porcine) 5,000 unit 04/21/23 00:00 04/21/23 07:54 Heparin Sodium,Porcine 5,000 Unit/Ml 1 Ml Vial SQ Not Given Q8HR [facility] Insulin Aspart 0 unit 04/21/23 07:30 04/21/23 06:22 Insulin Aspart (Novolog) 100 Unit/Ml Vial SQ Not Given ACHS [facility] Protocol Nitroglycerin 0.4 mg 04/20/23 13:40 Nitroglycerin Sl Tabs 0.4 Mg Tab SUBLINGUAL Q5M PRN Chest Pain Nitroglycerin 1 inch 04/20/23 18:00 04/21/23 09:05 Nitroglycerin Oint 1 Inch/Gm Packet TOPICAL Not Given Q6HR SARAH Intake and Output 04/20/23 04/21/23 04/21/23 22:59 06:59 14:59 Other: # Voids 1 2 Weight 79.832 kg 04/20/23 12:29 04/20/23 12:29 EKG Interpretations (text) Normal sinus rhythm Assessment and Plan Assessment: 1 symptoms of chest pressure, acute coronary event has been ruled out, EKG shows no evidence of ischemia and cardiac enzymes have been unremarkable 2 hypertension 3 hyperlipidemia 4 diabetes mellitus type 2 Plan: From cardiology perspective we'll obtain a 2-D echo with Doppler study to assess cardiac structure and function. We will obtain an exercise MPI to maximum capacity. Further recommendations will be made depending on test results. 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 Patient was seen and examined.
[2023-04-21] MEDS ORDERED: REGADENOSON 0.4 MG/5 ML SYRINGE IV ONE (11:10)
[2023-04-21 11:41] LABS: Blood Urea Nitrogen 18.3 mg/dL (9.0-27.0); Calcium 9.4 mg/dL (8.7-10.3); Carbon Dioxide 25.8 mmol/L (21.6-31.8); Chloride 105 mmol/L (96-109); Chol/HDL Ratio 2.89 Ratio; Glucose 101 mg/dL (70-110); LDL Cholesterol,Calculated 96.9 mg/dL (0.0-131.0); Sodium 142 mmol/L (135-145)
[2023-04-21 12:15] LABS: Glucose,Whole Blood 93 mg/dL (70-110)
--- NOTE | 2023-04-21 12:34 | CA ---
Lexiscan Nuclear Stress Test Report Name: Shelby Salgado Exam Date: 04/21/2023 10:49 Exam Location: [facility] Stress Ht (in): 63 Wt (lb): 176 BSA: 1.83 Ordering Phys: Marija Antoine NPC Referring Phys: NIXON, Technologist: Nate Choe Age: 62 Gender: F : 1960 Procedure CPT: Indications: Reflex order-Stress test ICD-10 Codes: Patient History: CP, LAKE, PALP, HTN, DM, CHOL, CATH Medications: SEE CHART Meds past 24 hrs: Pretest Chest Pain: STRESS TEST Lexiscan Protocol Exercise Duration (min:sec): 02:[address] Depressions (mm): Angina Score: Esparza Score: Resting HR (bpm): 65 Peak HR (bpm): 99 Resting BP (mmHg): 180 / 100 Peak BP (mmHg): 196 / 99 MPHR: 160 Target HR: 136 % MPHR: 62 METS: 1.0 Total Dose: Peak Dose: Atropine: Double Product: 24882 BP Response: Stress Termination: END OF DOSAGE Stress Symptoms: NAUSEA, CHEST PRESSURE, HEADACHE Stress Summary: ECG ANALYSIS Resting ECG: Sinus rhythm. Normal conduction. No arrhythmias. Non-specific ST-T wave changes. Stress ECG: No ECG changes from baseline with Lexiscan infusion. CONCLUSIONS No ECG evidence of ischemia with Lexiscan infusion. Nuclear test results to follow. Dr. Maddy Law MD (Electronically Signed) Final Date: 21 April 2023 12:33
[2023-04-21 14:24] VITALS: BP 152/82; PULSE 75; TEMP 98.1
--- NOTE | 2023-04-21 14:25 | NM ---
EXAMINATION TYPE: NM stress cardiolite complete DATE OF EXAM: 04/21/2023 COMPARISON: NONE CLINICAL INDICATION: Female, 62 years old with history of chest pain; TECHNIQUE: After the intravenous administration of 9.85 mCi Tc 99m Sestamibi - Rest images obtained 45 minutes post injection. The patient exercised using a CECELIA protocol and 1 minute prior to peak exercise was injected with 25.1 mCi Tc 99m Sestamibi - Stress images obtained 40 minutes post injecti on. FINDINGS: Targeted heart rate was achieved during performance of the study. Review of stress and rest SPECT eliot ges demonstrates no distinct perfusion abnormality. Gated analysis shows normal wall motion with an estimated left ventricular ejection fraction of 66 %. IMPRESSION: No scintigraphic evidence for reversible ischemia
--- NOTE | 2023-04-22 07:14 | CA ---
Transthoracic Echo Report Name: Shelby Salgado Age: 62 Gender: F : 1960 Exam Date: 04/21/2023 15:10 Exam Location: [facility] Echo Ht (in): 63 Wt (lb): 176 Ordering Physician: Marija Antoine Attending/Referring Phys: [id number], [employer] Technician Mey Parikh, LLUVIA Procedure CPT: Indications: Chest Pain Cardiac Hx: Technical Quality: Good Contrast 1: Total Dose (mL): Contrast 2: Total Dose (mL): MEASUREMENTS (Male / Female) Normal Values 2D ECHO LV Diastolic Diameter PLAX 4.3 cm 4.2 - 5.9 / 3.9 - 5.3 cm LV Systolic Diameter PLAX 2.9 cm IVS Diastolic Thickness 1.1 cm 0.6 - 1.0 / 0.6 - 0.9 cm LVPW Diastolic Thickness 1.2 cm 0.6 - 1.0 / 0.6 - 0.9 cm LV Relative Wall Thickness 0.5 RV Internal Dim ED PLAX 3.2 cm LA Systolic Diameter LX 4.1 cm 3.0 - 4.0 / 2.7 - 3.8 cm LV Diastolic Volume MOD 4C 98.8 cm??? LV Systolic Volume MOD 4C 45.1 cm??? LV Ejection Fraction MOD 4C 54.3 % LV Cardiac Index MOD 4C 1824.5 cm???/min???m??? LV Diastolic Length 4C 8.2 cm LV Systolic Length 4C 6.7 cm LV Diastolic Volume MOD 2C 86.8 cm??? LV Systolic Volume MOD 2C 39.2 cm??? LV Ejection Fraction MOD 2C 54.9 % LV Cardiac Index MOD 2C 1618.9 cm???/min???m??? LV Diastolic Length 2C 7.8 cm LV Systolic Length 2C 6.2 cm LA Volume 50.9 cm??? 18 - 58 / 22 - 52 cm??? LA Volume Index 26.6 cm???/m??? 16 - 28 cm???/m??? M-MODE Aortic Root Diameter MM 3.5 cm MV E Point Septal Separation 0.7 cm AV Cusp Separation MM 2.6 cm DOPPLER AV Peak Velocity 161.4 cm/s AV Peak Gradient 10.4 mmHg MV Area PHT 3.0 cm??? Mitral E Point Velocity 106.3 cm/s Mitral A Point Velocity 127.8 cm/s Mitral E to A Ratio 0.8 MV Deceleration Time 256.7 ms MV E' Velocity 7.5 cm/s Mitral E to MV E' Ratio 14.1 TR Peak Velocity 253.5 cm/s TR Peak Gradient 25.7 mmHg Right Ventricular Systolic Press 30.4 mmHg FINDINGS Left Ventricle Left ventricular ejection fraction is estimated at 55-60 %. Left ventricular cavity size normal. Normal left ventricular wall motion. Mildly increased left ventricular wall thickness. Normal left ventricular diastolic filling pattern. Right Ventricle Normal right ventricular size. Right ventricular systolic pressure within normal limits. Right Atrium Normal right atrial size. Left Atrium Mildly increased left atrial diameter. Mitral Valve Structurally normal mitral valve. No mitral stenosis, regurgitation or prolapse. Aortic Valve Trileaflet aortic valve. No aortic valve stenosis or regurgitation. Tricuspid Valve Structurally normal tricuspid valve. mild tricuspid regurgitation. Pulmonic Valve Structurally normal pulmonic valve. No pulmonic regurgitation. Pericardium No pericardial effusion. Aorta Normal size aortic root and proximal ascending aorta. CONCLUSIONS 1. Normal left ventricular size and systolic function 2. Mild tricuspid regurgitation with no evidence of pulmonary hypertension. Previewed by: Dr. Maddy Law MD (Electronically Signed) Final Date: 22 April 2023 07:13
== END 2023-04-21 16:25 | disposition home or self-care (01) ==
LOC: EC 11:55 → INTOOBSV 13:40 → 6NMEDSUR 13:40
PROVIDERS: ADMIT Hospitalist; ATTEND Hospitalist
DX: R07.89 Other chest pain (principal); G44.40 Drug-induced headache, not elsewhere classified, not intractable; T46.3X5A Adverse effect of coronary vasodilators, initial encounter; R06.09 Other forms of dyspnea; R00.2 Palpitations; G43.909 Migraine, unspecified, not intractable, without status migrainosus; I10 Essential (primary) hypertension; E78.00 Pure hypercholesterolemia, unspecified; E11.9 Type 2 diabetes mellitus without complications; K57.90 Diverticulosis of intestine, part unspecified, without perforation or abscess without bleeding; R42 Dizziness and giddiness; M25.512 Pain in left shoulder; Z79.82 Long term (current) use of aspirin; Z79.84 Long term (current) use of oral hypoglycemic drugs; Z79.899 Other long term (current) drug therapy; Z88.5 Allergy status to narcotic agent; Z88.7 Allergy status to serum and vaccine; Z86.14 Personal history of Methicillin resistant Staphylococcus aureus infection; Z98.891 History of uterine scar from previous surgery; Z87.19 Personal history of other diseases of the digestive system; Z87.891 Personal history of nicotine dependence; Z98.890 Other specified postprocedural states
CPT/HCPCS: 96376; 96375; 96372; 96374; 99285; 36415; 93005; 93017; 93306; 80061; 80053; 80048; 84443; 83735; 84484; 85025; 85610; 85730; 83036; 71046; 70450; 78452; G0378; A9500; J2405; J2785; J1885; J1170

== ENCOUNTER → 2023-06-01 | Outpatient (CLI) | payer BC ==
[2023-06-01 08:15] LABS: African American GFR (CKD) >90 (>60 ml/min/1.73 sqM); Blood Urea Nitrogen 17 mg/dL (7-17); Non-African American GFR(CKD) >90 (>60 ml/min/1.73 sqM)
--- NOTE | 2023-06-01 08:39 | US ---
EXAMINATION TYPE: US carotid duplex BILAT DATE OF EXAM: 06/01/2023 COMPARISON: NONE CLINICAL INDICATION: Female, 62 years old with history of R55 SYNCOPE AND COLLAPSE; On cholesterol an d blood pressure medications TECHNIQUE: Carotid duplex ultrasound examination. Indirect Doppler criteria was utilized. 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 No significant flow-limiting stenosis based on velocities Criteria for Assigning % of Stenosis / Diameter reduction (Estimation based on the indirect measurements of the internal carotid artery velocities (ICA PSV). 1. Normal (no stenosis)=ICA PSV < 125 cm/s: ratio < 2.0: ICA EDV<40 cm/s. 2. Less than 50% stenosis=ICA PSV < 125 cm/s: ratio < 2.0: ICA EDV<40 cm/s. 3. 50 to 69% stenosis=ICA PSV of 125 to 230 cm/s: ration 2.0 ? 4.0: ICA EDV 40-100 cm/s. 4. Greater than 70% stenosis to near occlusion= ICA PSV > 230 cm/s: ratio > 4.0: ICA EDV > 100 cm/s. 5. Near occlusion= ICA PSV velocities may be low or undetectable: variable ratio and ICA EDV. 6. Total occlusion=unable to detect flow.
--- NOTE | 2023-06-02 07:54 | CT ---
EXAMINATION TYPE: CT angio chest CT DLP: 696.1 mGycm, Automated exposure control for dose reduction was used. DATE OF EXAM: 06/01/2023 9:19 AM COMPARISON: None. CLINICAL INDICATION:Female, 62 years old with history of R06.09 Other forms of dyspnea; dyspnea, palp itations, angina TECHNIQUE/CONTRAST: CTA scan of the thorax is performed with IV Contrast, patient injected with 70 mL of Isovue 370, MIP images are created and reviewed these are created on a separate workstation.. FINDINGS: Pulmonary Artery: There is no evidence for a filling defect within the pulmonary vasculature to sugge st acute pulmonary embolism. The pulmonary artery is of normal size, 2.2 cm. Heart: Heart is within normal limits for size. No pericardial effusion. No appreciable coronary arter y calcification burden. Vasculature: No evidence of aortic aneurysm. Mild atherosclerotic disease. Mediastinum: No gross evidence of adenopathy. Small sliding hiatal hernia. Airway: Large airways are patent. Lower neck: No significant findings. Soft Tissues: Unremarkable. Lungs/Pleura: No evidence of focal consolidation, pleural effusion or pneumothorax. Musculoskeletal: No acute osseous abnormalities. Mild multilevel degenerative disc disease throughout the visualized spine. Chronic appearing anterior wedge deformity T10 with mild/moderate associated g ibbus deformity. Chronic changes with partial osseous fusion of the spinous processes from T8 through T11. Upper Abdomen: No significant findings. Possible mild hepatic steatosis. IMPRESSION: No evidence of pulmonary embolism. No acute chest process. Small sliding hiatal hernia.
== END | disposition home or self-care (01) ==
LOC: RADUSWWP 07:00
PROVIDERS: ATTEND Family Medicine
DX: K44.9 Diaphragmatic hernia without obstruction or gangrene (principal); R55 Syncope and collapse; R06.09 Other forms of dyspnea; R00.2 Palpitations
CPT/HCPCS: 93270; 82565; 84520; 93880; 71275; 36415; Q9967

== ENCOUNTER 2023-07-30 08:36 | Day surgery (SDC) | payer BC ==
[2023-07-27 12:04] VITALS: BMI 31.8
[~2023-07-30 08:36] MED LIST changes: -ACETAMINOPHEN TAB 500 MG TAB PO PRN; -CHLORHEXIDINE GLUCONATE 15 ML CUP MUCOUS MEM ONE; -DEXAMETHASONE SOD PHOSPHATE 4 MG/ML 1 ML VIAL IV ONE; -GABAPENTIN 300 MG CAP PO PRN; -HEPARIN SODIUM,PORCINE/PF 5,000 UNIT/0.5 ML SYRINGE SQ PRN; -MELOXICAM 7.5 MG TAB PO PRN; -MIDAZOLAM 2 MG/2 ML VIAL IV PRN; -ONDANSETRON 4 MG/2 ML VIAL IVP ONE; -PANTOPRAZOLE 40 MG/10 ML VIAL IVP ONE; -SCOPOLAMINE 1.5MG/72HR PATCH TRANSDERM ONE; -SCOPOLAMINE 1.5MG/72HR PATCH TRANSDERM PRN; +SODIUM CHLORIDE 0.9% 1,000 ML IV SCH; -fentaNYL (PF) 50 MCG/ML 2 ML AMP IV PRN
[2023-07-30] MEDS: SODIUM CHLORIDE 0.9% 500 ML 500 ML IV ONE (08:51)
[2023-07-30 09:21] VITALS: BP 203/89; RESP 16; TEMP 98
[2023-07-30 11:23] VITALS: PULSE 68
--- NOTE | 2023-07-30 18:18 | P.PN ---
Subjective Diagnosis Recurrent presyncope Twelve-lead EKG shows sinus rhythm normal RI narrow QRS normal ST segments normal QT interval Tilt table test per protocol Elevated blood pressure in the supine position Initial blood pressure was between 200-225 mmHg systolic and the diastolic between 90 and 100 mmHg However with 10 minutes of relaxation in the supine state her blood pressure improved to 182/89 mmHg Pulse rate 61 beats a minute Patient was tilted upright in angle of 70 degrees per protocol there was a progressive decline in her blood pressure without any significant change in heart rate The lowest blood pressure recorded was 116/64 mmHg Intermittently the patient would complain of being lightheaded nauseous with hot flashes When she was laid supine her blood pressure increased to 155/73 mmHg Impression Supine hypertension Orthostatic hypotension syndrome Normal twelve-lead EKG Recommendation Increase lisinopril to 40 mg p.o. daily at night If this does not result in improvement in symptoms, then Consider switching to nighttime dose of an angiotensin receptor caridad in place of KRISTAL inhibitors Losartan 50 to 100 mg p.o. daily at night in place of lisinopril Reasoning In patients with autonomic neuropathy and supine hypertension, elevated angiotensin levels have been recorded Along with a greater improvement with losartan versus enalapril, when taken specifically at night However this was a small study, randomized, but on nondiabetic patients with autonomic neuropathy with supine hypertension Objective - Vital Signs Vital signs: Vital Signs Temp 98 F 07/30/23 08:59 Pulse 68 07/30/23 11:01 Resp 16 07/30/23 08:59 BP 203/89 07/30/23 08:59 Pulse Ox 96 07/30/23 08:59 FiO2 Intake & Output 07/29/23 07/30/23 07/30/23 18:59 06:59 18:59 Intake Total 50 Balance 50 Intake: IV 50
== END 2023-07-30 11:03 | disposition home or self-care (01) ==
LOC: CATHEP 08:36
PROVIDERS: ATTEND Internal Medicine Clinical Cardiac Electrophysiology
DX: R55 Syncope and collapse (principal); I10 Essential (primary) hypertension; F17.210 Nicotine dependence, cigarettes, uncomplicated; E78.5 Hyperlipidemia, unspecified; E11.9 Type 2 diabetes mellitus without complications; Z79.4 Long term (current) use of insulin; Z79.899 Other long term (current) drug therapy
CPT/HCPCS: 93660

== ENCOUNTER → 2024-04-11 | Outpatient (CLI) | payer OTHER ==
--- NOTE | 2024-04-11 16:33 | XR ---
Right forearm. HISTORY: Fall. COMPARISON: None TECHNIQUE: 2 views right forearm were obtained. FINDINGS: There is no fracture or focal intraosseous abnormality. There is no soft tissue abnormality. IMPRESSION: No evidence of acute trauma. [facility] Smaia Jim, , 04/11/2024 4:31 PM
--- NOTE | 2024-04-11 16:35 | XR ---
Right hand. HISTORY: Trauma. COMPARISON: None. TECHNIQUE: 3 views of the right hand were obtained. FINDINGS: There is no fracture, dislocation or focal intraosseous abnormality. There is marked osteoarthritic c hange at the first carpometacarpal joint where there is joint space narrowing, sclerosis and marked h ypertrophic spurring. The remaining articulations are unremarkable. IMPRESSION: 1. No evidence of acute trauma. There are 2. marked osteoarthritis of the first carpometacarpal joint as described above. [facility], , 04/11/2024 4:33 PM
--- NOTE | 2024-04-11 16:37 | XR ---
Right wrist. HISTORY: Pain following fall. COMPARISON: None. TECHNIQUE: 4 views of the right wrist are obtained. FINDINGS: There is no fracture or focal intraosseous abnormality. There is marked osteoarthritic change of the first carpometacarpal joint and of the trapezium scaphoi d articulation where there is marked joint space narrowing, hypertrophic spurring and subchondral scl erosis. IMPRESSION: 1. No evidence of acute trauma to the right wrist. 2. 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 [facility], , 04/11/2024 4:34 PM
== END | disposition home or self-care (01) ==
LOC: RADXRMAIN 15:46
PROVIDERS: ATTEND Emergency Medicine